=== PATIENT | male | born 1975 | race Caucasian/White ===

== ENCOUNTER 2016-06-09 21:07 | Inpatient (IN) ==
[2016-06-09] MEDS ORDERED: Ipratropium/Albuterol Neb 3 ML IH ONE (21:13)
--- NOTE | 2016-06-09 21:23 | Emergency Department Note ---
START Narrative - START START: I examined this patient and my medical decision-making was reviewed with the RESIDENTIAL YOUTH COUNSELOR/PA/Advanced Practice Nurse/Resident Physician. I agree with the documented findings, disposition and treatment plan as described except to the extent set forth below. ED attending note: Patient seen with emergency medicine resident Dr. Hou. Please see a copy of his note for details of the H&P, evaluation, management and disposition of this patient. We independently had [id number] contact with the patient Briefly: 41-year-old male with history of drug abuse last used 2015 transferred from the [facility]. Patient having cough for several weeks of mild shortness of breath and tachycardic rhonchi bilaterally with wheezes. With a DuoNeb labs and x-rays. EKG shows a tachycardia with may be an atrial dysrhythmia. Disposition pending. DuoNeb's pending.
--- NOTE | 2016-06-09 21:24 | Emergency Department Note ---
Disposition Clinical Impression: Bronchitis, Acute psychosis Disposition: Still a Patient Condition: Undetermined [facility] Care Provider[facility] - Forms: ED Satisfaction Letter Time of Disposition: 06:46 General Adult HPI - General Chief complaint: ED Upper Respiratory Infection Stated complaint: Cough Time Seen by Provider: 06/09/16 21:13 Source: patient Mode of arrival: EMS Limitations: no limitations Nursing Notes Reviewed: Yes Vital Signs Reviewed: Yes - History of Present Illness HPI Narrative: 41-year-old male history of IV drug abuse arrives to [facility] emergency department complaining of progressively worsening cough that started as a nonproductive cough roughly 3 weeks ago that is progressively worsened. The patient is now experiencing sputum production as well as difficulty breathing. The patient states that he has felt heart palpitations where his near syncopal episodes as well. The patient states that he had a history of endocarditis back in 2014 2015. The patient denies abdominal pain, current nausea, the lateral leg swelling, recent surgeries, focalized weakness. The patient denies any current IV drug abuse, alcohol, tobacco. Onset (ago): week(s) (3 weeks worsening over last 4 days) Location: chest Radiation: non-radiation Pain Severity: moderate Pain Scale: 8 Quality: dull Consistency: constant Improves with: nothing Worsens with: nothing Associated symptoms: Reports: cough, fever/chills, shortness of breath, syncope (Near syncope) Treatments Prior to Arrival: none - Related Data Allergies Allergy/AdvReac Type Severity Reaction Status Date / Time No Known Allergies Allergy Verified 06/09/16 21:14 All systems ED: reviewed and negative except as stated. Constitutional: Reports: fever, chills, weakness Eyes: Denies: eye pain, eye discharge, vision change ENT ED: Denies: ear pain, throat pain, dental pain, hearing loss, epistaxis, congestion, dysphagia Cardiovascular: Reports: chest pain, dyspnea on exertion, syncope (Near syncope) . Denies: palpitations, edema Respiratory: Reports: cough, dyspnea, wheezes, sputum production. Denies: hemoptysis, stridor Gastrointestinal: Reports: nausea (Intermittent). Denies: abdominal pain, vomiting, diarrhea, constipation, hematemesis, melena, hematochezia Genitourinary: Denies: urgency, dysuria, frequency, hematuria Musculoskeletal: Reports: myalgia. Denies: back pain, neck pain, joint swelling , arthralgia Integumentary: Denies: rash, abrasion, lesions Neurological: Denies: headache, weakness, numbness, paresthesias, confusion, abnormal gait, vertigo Psychiatric: Reports: anxiety, depression, other (Paranoia). Denies: suicidal thoughts, homicidal thoughts Past Medical History - Past Medical History Attestation: Yes The following information was validated with the patient. Source: patient Medical history: Reports: hypertension, other (Endocarditis) Surgical history: Reports: non-contributory Psychiatric history: Reports: depression, PTSD - Social History Smoking Status: Former smoker Smokeless Tobacco Status: Yes Alcohol use: Reports: none Drug use: Reports: none, other (Previous IVDU) Physical Exam - General Limitations: no limitations General appearance: alert, anxious - Head Head exam: atraumatic, normocephalic, normal inspection - Eye Eye exam: Present: normal appearance, PERRL, EOMI - ENT ENT exam: normal exam, normal oropharynx, mucous membranes moist - Neck Neck exam: Present: normal inspection, full ROM, trachea midline - Chest Chest inspection: Present: normal inspection, symmetric chest wall rise - Respiratory Respiratory exam: Present: wheezes, other (Bilateral rhonchi) - Cardiovascular Cardiovascular exam: Present: regular rate, normal rhythm, normal heart sounds - Abdominal Exam Abdominal exam: Present: soft, Non-Tender. Absent: tenderness, distention, guarding, rebound, rigidity - Extremities Exam Extremities exam: Present: normal inspection, full ROM. Absent: tenderness, pedal edema - Back Exam Back exam: Present: normal inspection, full ROM. Absent: tenderness - Neurological Exam Neurological exam: Present: alert, oriented X3 - Psychiatric Psychiatric exam: Present: normal affect, normal mood Course Vital Signs Temperature 98.4 F 06/09/16 21:10 Pulse Rate 104 06/09/16 21:10 Respiratory Rate 20 06/09/16 21:10 Blood Pressure 147/120 06/09/16 21:10 O2 Sat by Pulse Oximetry 93 06/09/16 21:10 Temperature 98.5 F 06/10/16 06:01 Pulse Rate 100 06/10/16 06:01 Respiratory Rate 18 06/10/16 06:01 Blood Pressure 168/112 06/10/16 06:01 O2 Sat by Pulse Oximetry 94 06/10/16 06:01 Oxygen Delivery Oxygen Delivery Room Air Medical Decision Making - MDM Narrative Medical decision making narrative: Patient appears to be symptomatic pneumonia. We were going to treat the patient we will discharge patient home, but upon further questioning the patient continued to experiencing worsening delusions and paranoia. The patient states he does not have the ability to go home because he said the government is at his apartment. The patient is also having auditory and visual hallucinations. We will consult one A and have the patient seen. Currently awaiting placement at the [facility]. - Medical Records Medical records reviewed: Yes I reviewed the patient's medical records. - Lab Data Lab results reviewed: Yes I reviewed the patient's lab results. Result diagrams: 06/09/16 21:20 06/09/16 22:18 Lab Results 06/09/16 06/09/16 06/09/16 Range/Units 21:20 21:20 21:20 WBC 6.2 (4.3-11.1) K/mcL RBC 5.42 (4.19-5.50) M/mcL Hgb 15.6 (12.9-16.9) g/dL Hct 46.6 (37.5-50.1) % MCV 86.0 (83.0-100.0) fL MCH 28.8 (28.0-33.3) pg MCHC 33.5 (31.6-35.5) g/dL RDW 13.7 (11.5-14.5) % Plt Count 323 (140-400) K/mcL MPV 9.6 (9.4-12.4) fL Immature Gran % 1.6 (0-4) % Seg Neutrophils % 56.7 % Lymphocytes % 20.0 % Monocytes % 20.8 % Eosinophils % 0.3 % Basophils % 0.6 % Neutrophils # 3.5 (1.6-8.9) K/mcL Lymphocytes # 1.2 (0.6-4.6) K/mcL Monocytes # 1.3 (0.0-1.3) K/mcL Eosinophils # 0.0 (0.0-0.6) K/mcL Basophils # 0.0 (0.0-0.2) K/mcL Platelet Estimate Normal (Normal) PT 11.3 (9.4-12.1) Seconds INR 1.0 APTT 27.6 (26.0-36.0) Seconds Sodium (136-145) mEq/L Potassium (3.5-4.5) mEq/L Chloride (98-109) mEq/L Carbon Dioxide (19-29) mEq/L BUN (8-26) mg/dL Creatinine (0.72-1.25) mg/dL Est GFR ( Amer) (> 60) Est GFR (Non-Af Amer) (> 60) BUN/Creatinine Ratio (6-26) Glucose (70-99) mg/dL Calculated Osmolality (280-300) Lactic Acid 1.5 (0.5-2.2) mmol/L Calcium (8.6-10.8) mg/dL Phosphorus (2.3-4.7) mg/dL Magnesium (1.6-2.6) mg/dL Total Bilirubin (0.2-1.2) mg/dL Direct Bilirubin (0.0-0.5) mg/dL Indirect Bilirubin (0.0-1.2) mg/dL AST (5-34) Units/L ALT (0-55) Units/L Alkaline Phosphatase (38-126) Units/L Troponin I (0-0.03) ng/mL Serum Total Protein (6.0-8.3) g/dL Albumin (3.5-5.0) g/dL Globulin (2.4-3.5) g/dL Albumin/Globulin Ratio (1.1-2.2) Urine Color (Yellow) Urine Clarity (Clear) Urine pH (5.0-8.0) pH Units Ur Specific [place] (1.010-1.025) Urine Protein (Neg-Trace) mg/dL Urine Glucose (UA) (Normal) mg/dL Urine Ketones (Negative) mg/dL Urine Blood (Negative) Urine Nitrite (Negative) Urine Bilirubin (Negative) Urine Urobilinogen (Normal) mg/dL Ur Leukocyte Esterase (Negative) Ur Culture Indicated? (NO) Urine Opiates Screen (Adglcu=787) ng/mL Ur Barbiturates Screen (Tcyqzg=298) ng/mL Ur Phencyclidine Scrn (Cutoff=25) ng/mL Ur Amphetamines Screen (Hzjalr=5688) ng/mL U Benzodiazepines Scrn (Kefogd=741) ng/mL Urine Cocaine Screen (Cutoff= 300) ng/mL U Marijuana (THC) Screen (Cutoff = 50) ng/mL Ethyl Alcohol (0-10) mg/dL 06/09/16 06/09/16 06/09/16 Range/Units 22:18 22:18 22:18 WBC (4.3-11.1) K/mcL RBC (4.19-5.50) M/mcL Hgb (12.9-16.9) g/dL Hct (37.5-50.1) % MCV (83.0-100.0) fL MCH (28.0-33.3) pg MCHC (31.6-35.5) g/dL RDW (11.5-14.5) % Plt Count (140-400) K/mcL MPV (9.4-12.4) fL Immature Gran % (0-4) % Seg Neutrophils % % Lymphocytes % % Monocytes % % Eosinophils % % Basophils % % Neutrophils # (1.6-8.9) K/mcL Lymphocytes # (0.6-4.6) K/mcL Monocytes # (0.0-1.3) K/mcL Eosinophils # (0.0-0.6) K/mcL Basophils # (0.0-0.2) K/mcL Platelet Estimate (Normal) PT (9.4-12.1) Seconds INR APTT (26.0-36.0) Seconds Sodium 135 L (136-145) mEq/L Potassium 3.8 (3.5-4.5) mEq/L Chloride 96 L (98-109) mEq/L Carbon Dioxide 28 (19-29) mEq/L BUN 18 (8-26) mg/dL Creatinine 1.16 (0.72-1.25) mg/dL Est GFR ( Amer) > 60 (> 60) Est GFR (Non-Af Amer) > 60 (> 60) BUN/Creatinine Ratio 16 (6-26) Glucose 168 H (70-99) mg/dL Calculated Osmolality 286 (280-300) Lactic Acid (0.5-2.2) mmol/L Calcium 9.4 (8.6-10.8) mg/dL Phosphorus 2.2 L (2.3-4.7) mg/dL Magnesium 2.5 (1.6-2.6) mg/dL Total Bilirubin 0.5 (0.2-1.2) mg/dL Direct Bilirubin 0.2 (0.0-0.5) mg/dL Indirect Bilirubin 0.3 (0.0-1.2) mg/dL AST 60 H (5-34) Units/L ALT 41 (0-55) Units/L Alkaline Phosphatase 142 H (38-126) Units/L Troponin I 0.00 (0-0.03) ng/mL Serum Total Protein 8.9 H (6.0-8.3) g/dL Albumin 4.2 (3.5-5.0) g/dL Globulin 4.7 H (2.4-3.5) g/dL Albumin/Globulin Ratio 0.9 L (1.1-2.2) Urine Color (Yellow) Urine Clarity (Clear) Urine pH (5.0-8.0) pH Units Ur Specific [place] (1.010-1.025) Urine Protein (Neg-Trace) mg/dL Urine Glucose (UA) (Normal) mg/dL Urine Ketones (Negative) mg/dL Urine Blood (Negative) Urine Nitrite (Negative) Urine Bilirubin (Negative) Urine Urobilinogen (Normal) mg/dL Ur Leukocyte Esterase (Negative) Ur Culture Indicated? (NO) Urine Opiates Screen (Yoneik=274) ng/mL Ur Barbiturates Screen (Ljxdmi=923) ng/mL Ur Phencyclidine Scrn (Cutoff=25) ng/mL Ur Amphetamines Screen (Goaqct=6613) ng/mL U Benzodiazepines Scrn (Dzaavl=961) ng/mL Urine Cocaine Screen (Cutoff= 300) ng/mL U Marijuana (THC) Screen (Cutoff = 50) ng/mL Ethyl Alcohol < 10 (0-10) mg/dL 06/10/16 06/10/16 Range/Units 01:00 01:00 WBC (4.3-11.1) K/mcL RBC (4.19-5.50) M/mcL Hgb (12.9-16.9) g/dL Hct (37.5-50.1) % MCV (83.0-100.0) fL MCH (28.0-33.3) pg MCHC (31.6-35.5) g/dL RDW (11.5-14.5) % Plt Count (140-400) K/mcL MPV (9.4-12.4) fL Immature Gran % (0-4) % Seg Neutrophils % % Lymphocytes % % Monocytes % % Eosinophils % % Basophils % % Neutrophils # (1.6-8.9) K/mcL Lymphocytes # (0.6-4.6) K/mcL Monocytes # (0.0-1.3) K/mcL Eosinophils # (0.0-0.6) K/mcL Basophils # (0.0-0.2) K/mcL Platelet Estimate (Normal) PT (9.4-12.1) Seconds INR APTT (26.0-36.0) Seconds Sodium (136-145) mEq/L Potassium (3.5-4.5) mEq/L Chloride (98-109) mEq/L Carbon Dioxide (19-29) mEq/L BUN (8-26) mg/dL Creatinine (0.72-1.25) mg/dL Est GFR ( Amer) (> 60) Est GFR (Non-Af Amer) (> 60) BUN/Creatinine Ratio (6-26) Glucose (70-99) mg/dL Calculated Osmolality (280-300) Lactic Acid (0.5-2.2) mmol/L Calcium (8.6-10.8) mg/dL Phosphorus (2.3-4.7) mg/dL Magnesium (1.6-2.6) mg/dL Total Bilirubin (0.2-1.2) mg/dL Direct Bilirubin (0.0-0.5) mg/dL Indirect Bilirubin (0.0-1.2) mg/dL AST (5-34) Units/L ALT (0-55) Units/L Alkaline Phosphatase (38-126) Units/L Troponin I (0-0.03) ng/mL Serum Total Protein (6.0-8.3) g/dL Albumin (3.5-5.0) g/dL Globulin (2.4-3.5) g/dL Albumin/Globulin Ratio (1.1-2.2) Urine Color Yellow (Yellow) Urine Clarity Clear (Clear) Urine pH 6.5 (5.0-8.0) pH Units Ur Specific [place] 1.023 (1.010-1.025) Urine Protein Negative (Neg-Trace) mg/dL Urine Glucose (UA) Normal (Normal) mg/dL Urine Ketones Negative (Negative) mg/dL Urine Blood Negative (Negative) Urine Nitrite Negative (Negative) Urine Bilirubin Negative (Negative) Urine Urobilinogen Normal (Normal) mg/dL Ur Leukocyte Esterase Negative (Negative) Ur Culture Indicated? NO (NO) Urine Opiates Screen Negative (Bjxfmz=509) ng/mL Ur Barbiturates Screen Negative (Ccmzja=339) ng/mL Ur Phencyclidine Scrn Negative (Cutoff=25) ng/mL Ur Amphetamines Screen Negative (Nbwrwa=3989) ng/mL U Benzodiazepines Scrn Positive H (Xmglxu=793) ng/mL Urine Cocaine Screen Negative (Cutoff= 300) ng/mL U Marijuana (THC) Screen Negative (Cutoff = 50) ng/mL Ethyl Alcohol (0-10) mg/dL - Radiology Data Radiology results reviewed: Yes I reviewed the patient's radiology results. - EKG Data EKG #1 EKG attestation: Yes I reviewed and interpreted this EKG. EKG results narrative: Heart rate 10 6 bpm. QTC 396 ms. Normal axis. Sinus tachycardia. No ST elevation or ST depression noted. No previous EKG on record.
[2016-06-09 21:39] LABS: Basophils % 0.6 %; Eosinophils % 0.3 %; Hematocrit 46.6 % (37.5-50.1); Hemoglobin 15.6 g/dL (12.9-16.9); Immature Granulocytes % 1.6 % (0-4); Lymphocytes # 1.2 K/mcL (0.6-4.6); Mean Corpuscular HGB Conc 33.5 g/dL (31.6-35.5); Mean Corpuscular Hemoglobin 28.8 pg (28.0-33.3); Mean Platelet Volume 9.6 fL (9.4-12.4); Monocytes # 1.3 K/mcL (0.0-1.3); Monocytes % 20.8 %; Neutrophils # 3.5 K/mcL (1.6-8.9); Platelet Count 323 K/mcL (140-400); Red Blood Count 5.42 M/mcL (4.19-5.50); Red Cell Distribution Width 13.7 % (11.5-14.5); Segmented Neutrophils % 56.7 %
[2016-06-09 21:48] LABS: Prothrombin Time 11.3 Seconds (9.4-12.1)
[2016-06-09 21:51] LABS: Activated Partial Thrombo Time 27.6 Seconds (26.0-36.0)
[2016-06-09] MEDS ORDERED: *HR* LORazepam 2 MG/ML VIAL IVP ONE (21:56)
[2016-06-09] MEDS: 0.9 % Sodium Chloride 1,000 ML IVC SCH (22:14)
[2016-06-09 22:21] LABS: Platelet Estimate Normal (Normal)
[2016-06-09 22:44] LABS: Alanine Aminotransferase 41 Units/L (0-55); Albumin 4.2 g/dL (3.5-5.0); Albumin/Globulin Ratio 0.9 (1.1-2.2); Alkaline Phosphatase 142 Units/L (38-126); Aspartate Amino Transferase 60 Units/L (5-34); BUN/Creatinine Ratio 16 (6-26); Bilirubin,Direct 0.2 mg/dL (0.0-0.5); Bilirubin,Indirect 0.3 mg/dL (0.0-1.2); Bilirubin,Total 0.5 mg/dL (0.2-1.2); Blood Urea Nitrogen 18 mg/dL (8-26); Calcium 9.4 mg/dL (8.6-10.8); Carbon Dioxide 28 mEq/L (19-29); Chloride 96 mEq/L (98-109); Globulin 4.7 g/dL (2.4-3.5); Glucose 168 mg/dL (70-99); Magnesium 2.5 mg/dL (1.6-2.6); Osmolality,Calculated 286 (280-300); Phosphorous 2.2 mg/dL (2.3-4.7); Potassium 3.8 mEq/L (3.5-4.5); Sodium 135 mEq/L (136-145); Total Protein 8.9 g/dL (6.0-8.3); eGFR For African Americans > 60 (> 60); eGFR For Non-African Americans > 60 (> 60)
[2016-06-10] MEDS ORDERED: Haloperidol Lactate 5 MG/ML VIAL IVP ONE ×2 (00:25→12:27)
[2016-06-10] MEDS ORDERED: 0.9 % Sodium Chloride 1,000 ML ONE (00:29)
[2016-06-10] MEDS: 0.9 % Sodium Chloride 1,000 ML IVC SCH (00:31)
[2016-06-10 01:19] LABS: Bilirubin,Urine Negative (Negative); Blood,Urine Negative (Negative); Clarity,Urine Clear (Clear); Color,Urine Yellow (Yellow); Glucose,Urine (UA) Normal (Normal); Ketones,Urine Negative (Negative); Leukocyte Esterase,Urine Negative (Negative); Nitrite,Urine Negative (Negative); PH,Urine 6.5 pH Units (5.0-8.0); Protein,Urine Negative (Neg-Trace); Specific Gravity,Urine 1.023 (1.010-1.025); Urobilinogen,Urine Normal (Normal)
[2016-06-10 01:25] LABS: Amphetamine Screen,Urine Negative ng/mL (Cutoff=1000); Barbiturate Screen,Urine Negative ng/mL (Cutoff=200); Benzodiazepines Screen,Urine Positive ng/mL (Cutoff=200); Cannabinoid Screen,Urine Negative ng/mL (Cutoff = 50); Cocaine Screen,Urine Negative ng/mL (Cutoff= 300); Opiate Screen,Urine Negative ng/mL (Cutoff=300); Phencyclidine Screen,Urine Negative ng/mL (Cutoff=25)
[2016-06-10] MEDS ORDERED: *HR* Enoxaparin 100 MG/ML SYRINGE SQ STA (02:06)
[2016-06-10] MEDS ORDERED: cloNIDine HCl 0.1 MG TABLET PO ONE ×2 (02:49→09:26)
[2016-06-10] MEDS ORDERED: *HR* Labetalol 20 MG/4 ML SYRINGE IVP STA (03:22)
[2016-06-10] MEDS ORDERED: *HR* Labetalol 20 MG/4 ML SYRINGE IVP ONE ×3 (03:52→09:23)
[2016-06-10] MEDS ORDERED: *HR* Metoprolol 5 MG/5 ML VIAL IVP ONE (04:30)
--- NOTE | 2016-06-10 07:09 | Emergency Department Note ---
Disposition Clinical Impression: Bronchitis, Acute psychosis Disposition: Admitted As Inpatient Condition: Good Time of Disposition: 14:20 General Adult HPI - General Chief complaint: ED Upper Respiratory Infection Stated complaint: Cough/psych Time Seen by Provider: 06/09/16 21:13 Source: patient Mode of arrival: EMS Limitations: no limitations - History of Present Illness Location: chest Pain Scale: 8 Quality: dull Improves with: nothing Worsens with: nothing Associated symptoms: Reports: cough, fever/chills, shortness of breath, syncope (Near syncope) Treatments Prior to Arrival: none - Related Data Home Medications Medication Instructions Recorded Confirmed Acetaminophen [Tylenol] 650 mg PO TID PRN 06/10/16 06/10/16 Baclofen 20 mg PO TID 06/10/16 06/10/16 Carvedilol 12.5 mg PO BID 06/10/16 06/10/16 Cetirizine HCl [Zyrtec] 10 mg PO DAILY 06/10/16 06/10/16 Cholecalciferol (D-3) [Vitamin D] 2,000 unit PO DAILY 06/10/16 06/10/16 CloNIDine HCl [Clonidine HCl] 0.2 mg PO Q8H PRN 06/10/16 06/10/16 DiphenhydraMINE [Benadryl] 25 mg PO HS 06/10/16 06/10/16 Gabapentin [Neurontin] 1,200 mg PO HS 06/10/16 06/10/16 Gabapentin [Neurontin] 500 mg PO BID 06/10/16 06/10/16 HydrOXYzine Pamoate [Vistaril] 50 mg PO TID PRN 06/10/16 06/10/16 Lamotrigine [Lamictal] 100 mg PO AD 06/10/16 06/10/16 Levothyroxine [Synthroid] 25 mcg PO 0630 06/10/16 06/10/16 Lipase/Protease/Amylase [Creon Dr 1 each PO QID 06/10/16 06/10/16 6,000 Units Capsule] Lisinopril-HCTZ 20-12.5 [Prinzide 2 each PO DAILY 06/10/16 06/10/16 20-12.5] Melatonin [Melatin] 6 mg PO HS 06/10/16 06/10/16 Meloxicam [Mobic] 15 mg PO DAILY 06/10/16 06/10/16 Naltrexone Microspheres [Vivitrol] 380 mg IM Q28D 06/10/16 06/10/16 Omeprazole [PriLOSEC] 20 mg PO BIDAC 06/10/16 06/10/16 Ondansetron HCl [Zofran] 4 mg PO TID PRN 06/10/16 06/10/16 Promethazine [Phenergan] 25 mg PO BID 06/10/16 06/10/16 Pseudoephedrine [Sudafed] 60 mg PO Q6H PRN 06/10/16 06/10/16 Quetiapine Fumarate [SEROquel] 100 mg PO 1200 06/10/16 06/10/16 Quetiapine Fumarate [Seroquel] 600 mg PO HS 06/10/16 06/10/16 Sildenafil Citrate [Viagra] 50 mg PO AD PRN 06/10/16 06/10/16 Terazosin HCl 4 mg PO HS 06/10/16 06/10/16 Trazodone HCl 150 mg PO HS PRN 06/10/16 06/10/16 Allergies Allergy/AdvReac Type Severity Reaction Status Date / Time mupirocin [From Bactroban] AdvReac See Verified 06/10/16 15:19 Comments Constitutional: Reports: fever, chills, weakness Eyes: Denies: eye pain, eye discharge, vision change ENT ED: Denies: ear pain, throat pain, dental pain, hearing loss, epistaxis, congestion, dysphagia Cardiovascular: Reports: chest pain, dyspnea on exertion, syncope (Near syncope) . Denies: palpitations, edema Respiratory: Reports: cough, dyspnea, wheezes, sputum production. Denies: hemoptysis, stridor Gastrointestinal: Reports: nausea (Intermittent). Denies: abdominal pain, vomiting, diarrhea, constipation, hematemesis, melena, hematochezia Genitourinary: Denies: urgency, dysuria, frequency, hematuria Musculoskeletal: Reports: myalgia. Denies: back pain, neck pain, joint swelling , arthralgia Integumentary: Denies: rash, abrasion, lesions Neurological: Denies: headache, weakness, numbness, paresthesias, confusion, abnormal gait, vertigo Psychiatric: Reports: anxiety, depression, other (Paranoia). Denies: suicidal thoughts, homicidal thoughts Past Medical History - Past Medical History Medical history: Reports: hypertension, other (Endocarditis) Surgical history: Reports: non-contributory Psychiatric history: Reports: depression, PTSD - Social History Smoking Status: Former smoker Smokeless Tobacco Status: Yes Alcohol use: Reports: none Drug use: Reports: none, other (Previous IVDU) Physical Exam - General Limitations: no limitations General appearance: alert, anxious Course Course Narrative: Patient states signed out at shift change by Dr. Cortes and Dr. Hou. Patient is being for transfer to [facility]. Medical admission for psychiatric admission to be completed. Patient stable at this time no other intervention needed. We will reevaluate once he wakes up. We will let him rest at this time. Vital signs and stable throughout the night and he is in no acute concern for harming staff herself at this time. We will continue to monitor as treatment course is completed - Reevaluation(s) Reevaluation #1: [facility] is been contacted multiple times throughout the course. This morning. We have been observing and treating this patient for approximate 6 hours at this time. Multiple attempts of been made to transfer the patient over [facility] and has been met resistance. Laboratory workup imaging and paperwork involvement sent to them at this time. Direct contact was made with the psychiatrist that would be accepting them. They are requesting at this point repeat EKG and blood pressure to be evaluated. They are concerned there is a medical issue at this time. Patient's blood pressure has been elevated but is known of hypertension. Is responded to home medications are in issue. Patient is still acutely manic. Otherwise she has been no distress to us. The rest of his labs and imaging were reviewed and are stable. Disposition pending repeat evaluation by the [facility] Time: 12:58 Reevaluation #2: [facility] was contacted again. They feel that the unable to take care of this patient here because they would require a cardiology consultation to evaluate his high heart rate and hypertension. Patient has not had any acute issues here. When he is resting his heart rate is below 100 only goes up when he is getting agitated. Most of his presentation appears to be secondary to his manic episodes. They understand this but still do not feel comfortable taking her. We will admit for medical clearance and treatment here at our facility and then psychiatric placement. Patient is stable hospital was paged at this time Time: 14:09 Reevaluation #3: Patient discussed with the hospice nurse practitioner Kayleigh for admission process and medical clearance. The patient's presentation symptoms medical history. Should other recommendations this time. Patient stable pressures normalized with his home meds with his heart rate does go up a time; talk to him. She will be admitted and then transferred to outside facility. Time: 14:19 Vital Signs Temperature 98.4 F 06/09/16 21:10 Pulse Rate 104 06/09/16 21:10 Respiratory Rate 20 06/09/16 21:10 Blood Pressure 147/120 06/09/16 21:10 O2 Sat by Pulse Oximetry 93 06/09/16 21:10 Temperature 98.7 F 06/10/16 16:19 Pulse Rate 115 06/10/16 16:19 Respiratory Rate 18 06/10/16 16:19 Blood Pressure 138/97 06/10/16 16:19 O2 Sat by Pulse Oximetry 94 06/10/16 16:19 Oxygen Delivery Oxygen Delivery Room Air Medical Decision Making - MDM Narrative Medical decision making narrative: Manic episode, schizophrenia - Medical Records Medical records reviewed: Yes I reviewed the patient's medical records. - Lab Data Lab results reviewed: Yes I reviewed the patient's lab results. Result diagrams: 06/09/16 21:20 06/09/16 22:18 Lab Results 06/09/16 06/09/16 06/09/16 Range/Units 21:20 21:20 21:20 WBC 6.2 (4.3-11.1) K/mcL RBC 5.42 (4.19-5.50) M/mcL Hgb 15.6 (12.9-16.9) g/dL Hct 46.6 (37.5-50.1) % MCV 86.0 (83.0-100.0) fL MCH 28.8 (28.0-33.3) pg MCHC 33.5 (31.6-35.5) g/dL RDW 13.7 (11.5-14.5) % Plt Count 323 (140-400) K/mcL MPV 9.6 (9.4-12.4) fL Immature Gran % 1.6 (0-4) % Seg Neutrophils % 56.7 % Lymphocytes % 20.0 % Monocytes % 20.8 % Eosinophils % 0.3 % Basophils % 0.6 % Neutrophils # 3.5 (1.6-8.9) K/mcL Lymphocytes # 1.2 (0.6-4.6) K/mcL Monocytes # 1.3 (0.0-1.3) K/mcL Eosinophils # 0.0 (0.0-0.6) K/mcL Basophils # 0.0 (0.0-0.2) K/mcL Platelet Estimate Normal (Normal) PT 11.3 (9.4-12.1) Seconds INR 1.0 APTT 27.6 (26.0-36.0) Seconds Sodium (136-145) mEq/L Potassium (3.5-4.5) mEq/L Chloride (98-109) mEq/L Carbon Dioxide (19-29) mEq/L BUN (8-26) mg/dL Creatinine (0.72-1.25) mg/dL Est GFR ( Amer) (> 60) Est GFR (Non-Af Amer) (> 60) BUN/Creatinine Ratio (6-26) Glucose (70-99) mg/dL Calculated Osmolality (280-300) Lactic Acid 1.5 (0.5-2.2) mmol/L Calcium (8.6-10.8) mg/dL Phosphorus (2.3-4.7) mg/dL Magnesium (1.6-2.6) mg/dL Total Bilirubin (0.2-1.2) mg/dL Direct Bilirubin (0.0-0.5) mg/dL Indirect Bilirubin (0.0-1.2) mg/dL AST (5-34) Units/L ALT (0-55) Units/L Alkaline Phosphatase (38-126) Units/L Troponin I (0-0.03) ng/mL Serum Total Protein (6.0-8.3) g/dL Albumin (3.5-5.0) g/dL Globulin (2.4-3.5) g/dL Albumin/Globulin Ratio (1.1-2.2) Urine Color (Yellow) Urine Clarity (Clear) Urine pH (5.0-8.0) pH Units Ur Specific Hudson (1.010-1.025) Urine Protein (Neg-Trace) mg/dL Urine Glucose (UA) (Normal) mg/dL Urine Ketones (Negative) mg/dL Urine Blood (Negative) Urine Nitrite (Negative) Urine Bilirubin (Negative) Urine Urobilinogen (Normal) mg/dL Ur Leukocyte Esterase (Negative) Ur Culture Indicated? (NO) Urine Opiates Screen (Qfvtep=057) ng/mL Ur Barbiturates Screen (Bccpdg=599) ng/mL Ur Phencyclidine Scrn (Cutoff=25) ng/mL Ur Amphetamines Screen (Hyszuo=9940) ng/mL U Benzodiazepines Scrn (Wsktgf=938) ng/mL Urine Cocaine Screen (Cutoff= 300) ng/mL U Marijuana (THC) Screen (Cutoff = 50) ng/mL Ethyl Alcohol (0-10) mg/dL 06/09/16 06/09/16 06/09/16 Range/Units 22:18 22:18 22:18 WBC (4.3-11.1) K/mcL RBC (4.19-5.50) M/mcL Hgb (12.9-16.9) g/dL Hct (37.5-50.1) % MCV (83.0-100.0) fL MCH (28.0-33.3) pg MCHC (31.6-35.5) g/dL RDW (11.5-14.5) % Plt Count (140-400) K/mcL MPV (9.4-12.4) fL Immature Gran % (0-4) % Seg Neutrophils % % Lymphocytes % % Monocytes % % Eosinophils % % Basophils % % Neutrophils # (1.6-8.9) K/mcL Lymphocytes # (0.6-4.6) K/mcL Monocytes # (0.0-1.3) K/mcL Eosinophils # (0.0-0.6) K/mcL Basophils # (0.0-0.2) K/mcL Platelet Estimate (Normal) PT (9.4-12.1) Seconds INR APTT (26.0-36.0) Seconds Sodium 135 L (136-145) mEq/L Potassium 3.8 (3.5-4.5) mEq/L Chloride 96 L (98-109) mEq/L Carbon Dioxide 28 (19-29) mEq/L BUN 18 (8-26) mg/dL Creatinine 1.16 (0.72-1.25) mg/dL Est GFR ( Amer) > 60 (> 60) Est GFR (Non-Af Amer) > 60 (> 60) BUN/Creatinine Ratio 16 (6-26) Glucose 168 H (70-99) mg/dL Calculated Osmolality 286 (280-300) Lactic Acid (0.5-2.2) mmol/L Calcium 9.4 (8.6-10.8) mg/dL Phosphorus 2.2 L (2.3-4.7) mg/dL Magnesium 2.5 (1.6-2.6) mg/dL Total Bilirubin 0.5 (0.2-1.2) mg/dL Direct Bilirubin 0.2 (0.0-0.5) mg/dL Indirect Bilirubin 0.3 (0.0-1.2) mg/dL AST 60 H (5-34) Units/L ALT 41 (0-55) Units/L Alkaline Phosphatase 142 H (38-126) Units/L Troponin I 0.00 (0-0.03) ng/mL Serum Total Protein 8.9 H (6.0-8.3) g/dL Albumin 4.2 (3.5-5.0) g/dL Globulin 4.7 H (2.4-3.5) g/dL Albumin/Globulin Ratio 0.9 L (1.1-2.2) Urine Color (Yellow) Urine Clarity (Clear) Urine pH (5.0-8.0) pH Units Ur Specific Hudson (1.010-1.025) Urine Protein (Neg-Trace) mg/dL Urine Glucose (UA) (Normal) mg/dL Urine Ketones (Negative) mg/dL Urine Blood (Negative) Urine Nitrite (Negative) Urine Bilirubin (Negative) Urine Urobilinogen (Normal) mg/dL Ur Leukocyte Esterase (Negative) Ur Culture Indicated? (NO) Urine Opiates Screen (Pcfxmd=427) ng/mL Ur Barbiturates Screen (Wtgcgj=552) ng/mL Ur Phencyclidine Scrn (Cutoff=25) ng/mL Ur Amphetamines Screen (Hluuxr=9201) ng/mL U Benzodiazepines Scrn (Vgsspn=443) ng/mL Urine Cocaine Screen (Cutoff= 300) ng/mL U Marijuana (THC) Screen (Cutoff = 50) ng/mL Ethyl Alcohol < 10 (0-10) mg/dL 06/10/16 06/10/16 Range/Units 01:00 01:00 WBC (4.3-11.1) K/mcL RBC (4.19-5.50) M/mcL Hgb (12.9-16.9) g/dL Hct (37.5-50.1) % MCV (83.0-100.0) fL MCH (28.0-33.3) pg MCHC (31.6-35.5) g/dL RDW (11.5-14.5) % Plt Count (140-400) K/mcL MPV (9.4-12.4) fL Immature Gran % (0-4) % Seg Neutrophils % % Lymphocytes % % Monocytes % % Eosinophils % % Basophils % % Neutrophils # (1.6-8.9) K/mcL Lymphocytes # (0.6-4.6) K/mcL Monocytes # (0.0-1.3) K/mcL Eosinophils # (0.0-0.6) K/mcL Basophils # (0.0-0.2) K/mcL Platelet Estimate (Normal) PT (9.4-12.1) Seconds INR APTT (26.0-36.0) Seconds Sodium (136-145) mEq/L Potassium (3.5-4.5) mEq/L Chloride (98-109) mEq/L Carbon Dioxide (19-29) mEq/L BUN (8-26) mg/dL Creatinine (0.72-1.25) mg/dL Est GFR ( Amer) (> 60) Est GFR (Non-Af Amer) (> 60) BUN/Creatinine Ratio (6-26) Glucose (70-99) mg/dL Calculated Osmolality (280-300) Lactic Acid (0.5-2.2) mmol/L Calcium (8.6-10.8) mg/dL Phosphorus (2.3-4.7) mg/dL Magnesium (1.6-2.6) mg/dL Total Bilirubin (0.2-1.2) mg/dL Direct Bilirubin (0.0-0.5) mg/dL Indirect Bilirubin (0.0-1.2) mg/dL AST (5-34) Units/L ALT (0-55) Units/L Alkaline Phosphatase (38-126) Units/L Troponin I (0-0.03) ng/mL Serum Total Protein (6.0-8.3) g/dL Albumin (3.5-5.0) g/dL Globulin (2.4-3.5) g/dL Albumin/Globulin Ratio (1.1-2.2) Urine Color Yellow (Yellow) Urine Clarity Clear (Clear) Urine pH 6.5 (5.0-8.0) pH Units Ur Specific Hudson 1.023 (1.010-1.025) Urine Protein Negative (Neg-Trace) mg/dL Urine Glucose (UA) Normal (Normal) mg/dL Urine Ketones Negative (Negative) mg/dL Urine Blood Negative (Negative) Urine Nitrite Negative (Negative) Urine Bilirubin Negative (Negative) Urine Urobilinogen Normal (Normal) mg/dL Ur Leukocyte Esterase Negative (Negative) Ur Culture Indicated? NO (NO) Urine Opiates Screen Negative (Npclmn=040) ng/mL Ur Barbiturates Screen Negative (Gbzzqm=557) ng/mL Ur Phencyclidine Scrn Negative (Cutoff=25) ng/mL Ur Amphetamines Screen Negative (Jyekrk=3470) ng/mL U Benzodiazepines Scrn Positive H (Dgnktj=820) ng/mL Urine Cocaine Screen Negative (Cutoff= 300) ng/mL U Marijuana (THC) Screen Negative (Cutoff = 50) ng/mL Ethyl Alcohol (0-10) mg/dL Attestation Statement - Attestation Attestation: I, Alden Daniels, examined this patient and my medical decision-making was reviewed with the HEAT PLANT SPECIALIST/PA/Advanced Practice Nurse/Resident Physician. I agree with the documented findings, disposition and treatment plan as described except to the extent set forth below. 41-year-old male received in sign out from the night physician at the start of my shift pending transfer to [facility]. Pt was initially evaluated for a persistent cough. During the evaluation, the patient was found to have paranoid delusions , to be tachycardic, and hypertensive. Patient BP improved after administration of multiple antihypertensive medications in the emergency department. Patient has no further complaints at this time. The [facility] was contacted multiple times during my shift who then said that [facility] because of his heart [facility]. They stated that they were unable to medically admit him at the [facility] because there was no film cleaner available to consult regarding the tachycardia. Patient will be admitted to the hospitalists for further care and evaluation and observation regarding his tachycardia.
[2016-06-10] MEDS ORDERED: *HR* LORazepam 2 MG/ML VIAL IVP ONE ×2 (09:24→12:26)
[2016-06-10] MEDS ORDERED: *HR* LORazepam 1 MG TABLET PO ONE (12:56)
--- NOTE | 2016-06-10 16:12 | Internal Med History&Physical ---
<Kevon Palma - Last Filed: 06/10/16 17:01> Date of Encounter: 06/10/16 Time of Encounter: 16:07 Assessment and Plan (1) Bronchitis Current visit: Yes Status: Acute currently on room air. recently treated with augmentin. will treat with Azithromycin to cover for atypicals as he is still symptomatic. Bronchodilators PRN. (2) Acute psychosis Current visit: Yes Status: Acute patient exhibits signs of paranoia and delusions. Very difficult to interview. Consult Psychiatry. will order PRN haldol. Obtain verification of home med list from pharmacy. (3) Bipolar disease, chronic Current visit: Yes Status: Acute appreciate input from psych. continue home medications when verified. (4) Transaminitis Current visit: Yes Status: Acute mildly elevated. Possibly from medications or ETOH. continue to montitor. (5) Accelerated hypertension Current visit: Yes Status: Acute likely from agitation and missing clonidine dosage. Improved and currently at goal. resume home BP meds. (6) DVT prophylaxis Current visit: Yes Status: Acute EPCD Internal Medicine - H&P: HPI Chief complaint: cough Admitted From: Emergency Dept Plans for Post Hospital Care: Home History of present illness: Mr. Smith is a 41 year old male with past medical history of BiPolar disorder and PTSD. He came to [facility] ED complaining of a cough. However he became agitated and exhibited symptoms of Psychosis. ER did try and transfer him to the [facility] where he has received psychiatric care in the past. However he had some mild tachycardia and hypertension so he will be admitted to [facility]. Today the patient is a very poor historian. He selectively answers questions. He states that he came in for a cough and " pneumonia like symptoms". He also has possibly some delusions. He seems to have some paranoia about his roomates saying they had tapped his phone. He also stated that he met Keagan Smith here at the hospital. Past Med Surg Social Fam HX - Past Medical History Medical history: hypertension, other (Endocarditis) Psychiatric history: depression, PTSD - Past Surgical History Surgical History: non-contributory - Social History Smoking Status: Former smoker Smokeless Tobacco Status: Yes Alcohol use: none Drug use: none, other (Previous IVDU) Internal Medicine - H&P: Meds Acetaminophen [Tylenol] 650 mg PO TID PRN 06/10/16 [History] Baclofen 20 mg PO TID 06/10/16 [History] Carvedilol 12.5 mg PO BID 06/10/16 [History] Cetirizine HCl [Zyrtec] 10 mg PO DAILY 06/10/16 [History] Cholecalciferol (D-3) [Vitamin D] 2,000 unit PO DAILY 06/10/16 [History] CloNIDine HCl [Clonidine HCl] 0.2 mg PO Q8H PRN 06/10/16 [History] DiphenhydraMINE [Benadryl] 25 mg PO HS 06/10/16 [History] Gabapentin [Neurontin] 1,200 mg PO HS 06/10/16 [History] Gabapentin [Neurontin] 500 mg PO BID 06/10/16 [History] HydrOXYzine Pamoate [Vistaril] 50 mg PO TID PRN 06/10/16 [History] Lamotrigine [Lamictal] 100 mg PO AD 06/10/16 [History] Levothyroxine [Synthroid] 25 mcg PO 0630 06/10/16 [History] Lipase/Protease/Amylase [Creon Dr 6,000 Units Capsule] 1 each PO QID 06/10/16 [ History] Lisinopril-HCTZ 20-12.5 [Prinzide 20-12.5] 2 each PO DAILY 06/10/16 [History] Melatonin [Melatin] 6 mg PO HS 06/10/16 [History] Meloxicam [Mobic] 15 mg PO DAILY 06/10/16 [History] Naltrexone Microspheres [Vivitrol] 380 mg IM Q28D 06/10/16 [History] Omeprazole [PriLOSEC] 20 mg PO BIDAC 06/10/16 [History] Ondansetron HCl [Zofran] 4 mg PO TID PRN 06/10/16 [History] Promethazine [Phenergan] 25 mg PO BID 06/10/16 [History] Pseudoephedrine [Sudafed] 60 mg PO Q6H PRN 06/10/16 [History] Quetiapine Fumarate [SEROquel] 100 mg PO 1200 06/10/16 [History] Quetiapine Fumarate [Seroquel] 600 mg PO HS 06/10/16 [History] Sildenafil Citrate [Viagra] 50 mg PO AD PRN 06/10/16 [History] Terazosin HCl 4 mg PO HS 06/10/16 [History] Trazodone HCl 150 mg PO HS PRN 06/10/16 [History] Allergies mupirocin [From Bactroban] Adverse Reaction (Verified 06/10/16 15:19) See Comments per [facility] list All Systems PM: A 10-system review of systems was performed and is negative for pertinent findings except as documented above in the HPI. Review of systems: t Unable to obtain. Patient is not cooperative with interview. - Constitutional Vitals: Temp Pulse Resp BP Pulse Ox 0 F L 115 18 137/78 96 06/10/16 15:44 06/10/16 13:35 06/10/16 15:44 06/10/16 15:44 06/10/16 13:35 General appearance: Present: A&O X 1 - Head Head exam: Present: atraumatic, normocephalic - Eye Eye exam: Present: PERRL, conjuntiva pink, sclera anicteric Pupils: Present: PERRL - Neck Neck exam general surgery: Present: supple, trachea midline. Absent: lymphadenopathy - Respiratory Respiratory exam: Present: wheezes (mild expiratory bilateral). Absent: accessory muscle use, rales, rhonchi - Cardiovascular Cardiovascular exam: Present: +S1, +S2, tachycardia (mildly). Absent: diastolic murmur, gallop, rubs, systolic murmur - GI/Abdominal GI/Abdominal exam: Present: normal bowel sounds, soft, no peritoneal signs. Absent: distended, tenderness - Extremities Exam Extremities exam: Present: warm, radial pulses palpable and symetrical. Absent : calf tenderness, cyanotic, pedal edema - Psychiatric Psychiatric exam: Present: agitated, anxious, flat affect - Skin Skin exam: Present: dry, intact Internal Med - H&P Results - Labs CBC & Chem 7: 06/09/16 21:20 06/09/16 22:18 <Tyrone Bernard P - Last Filed: 06/10/16 19:05> Date of Encounter: 06/10/16 Internal Medicine - H&P: HPI History of present illness: Mr. Smith is a 41 year old male All Systems PM: A 10-system review of systems was performed and is negative for pertinent findings except as documented above in the HPI. - Constitutional Vitals: Temp Pulse Resp BP Pulse Ox 98.7 F 115 18 138/97 94 06/10/16 16:19 06/10/16 16:19 06/10/16 16:19 06/10/16 16:19 06/10/16 16:19 Internal Med - H&P Results - Labs CBC & Chem 7: 06/09/16 21:20 06/09/16 22:18 - Impressions ITS Impressions Head CT 06/10/16 16:17 IMPRESSION: No acute intracranial abnormality. D/ / Sugey Angel MD / Sugey Angel MD Interpreting Provider: Sugey Angel MD - Attending Attestation I examined this patient and my medical decision-making was reviewed with the FRUIT SORTER/PA/Advanced Practice Nurse/Resident Physician. I agree with the documented findings, disposition and treatment plan as described except to the extent set forth below.
[2016-06-10] MEDS ORDERED: Naloxone 0.4 MG/ML INJ IVP PRN (16:13)
[2016-06-10] MEDS ORDERED: Acetaminophen 325 MG TABLET PO PRN (16:13)
[2016-06-10] MEDS ORDERED: Ondansetron ODT 4 MG TAB.RAPDIS SL PRN (16:13)
[2016-06-10] MEDS ORDERED: Albuterol 2.5 MG/3 ML NEBULIZER IH PRN (16:16)
[2016-06-10] MEDS ORDERED: Azithromycin 250 MG TABLET PO ONE (16:22)
[2016-06-10] MEDS ORDERED: Haloperidol Lactate 5 MG/ML VIAL IM PRN (16:25)
[2016-06-10] MEDS ORDERED: cloNIDine HCl 0.1 MG TABLET PO PRN (16:57)
--- NOTE | 2016-06-10 18:30 | Electrocardiograph Report ---
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
--- NOTE | 2016-06-10 19:07 | Electrocardiograph Report ---
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
[2016-06-10] MEDS: Ipratropium/Albuterol Neb 3 ML IH PRN (20:43)
[2016-06-10] MEDS: Baclofen 10 MG TABLET PO SCH (21:05)
[2016-06-11] MEDS ORDERED: OLANZapine 10 MG VIAL IM ONE (01:30)
--- NOTE | 2016-06-11 01:31 | Event Note ---
Date of Encounter: 06/11/16 Time of Encounter: 01:31 On-call Hospitalist note: I have been paged to see the pt. Pt apparently packed his bags and wants to go to [facility]. He thinks that President [facility] is waiting to pick him up. He made a phone call to his family. Psychosis - given a dose of zyprexa 5 mg IM. Involuntary commitment done. Needs evaluation by the psychiatrist.
[2016-06-11] MEDS ORDERED: Water for inj. (sterile) 10 ML IV ONE (01:41)
[2016-06-11 05:35] LABS: Basophils % 0.3 %; Hematocrit 43.9 % (37.5-50.1); Hemoglobin 14.8 g/dL (12.9-16.9); Immature Granulocytes % 0.8 % (0-4); Lymphocytes # 1.5 K/mcL (0.6-4.6); Lymphocytes % 20.3 %; Mean Corpuscular HGB Conc 33.7 g/dL (31.6-35.5); Mean Corpuscular Hemoglobin 28.6 pg (28.0-33.3); Mean Corpuscular Volume 84.7 fL (83.0-100.0); Mean Platelet Volume 9.6 fL (9.4-12.4); Monocytes # 1.4 K/mcL (0.0-1.3); Monocytes % 19.2 %; Neutrophils # 4.4 K/mcL (1.6-8.9); Platelet Count 262 K/mcL (140-400); Red Blood Count 5.18 M/mcL (4.19-5.50); Red Cell Distribution Width 13.9 % (11.5-14.5); Segmented Neutrophils % 59.4 %
[2016-06-11] MEDS: Levothyroxine 25 MCG TABLET PO SCH (05:47)
[2016-06-11 06:12] LABS: BUN/Creatinine Ratio 22 (6-26); Blood Urea Nitrogen 21 mg/dL (8-26); Calcium 9.6 mg/dL (8.6-10.8); Carbon Dioxide 21 mEq/L (19-29); Chloride 98 mEq/L (98-109); Glucose 105 mg/dL (70-99); Osmolality,Calculated 279 (280-300); Potassium 3.6 mEq/L (3.5-4.5); Sodium 133 mEq/L (136-145); eGFR For African Americans > 60 (> 60); eGFR For Non-African Americans > 60 (> 60)
[2016-06-11 06:44] LABS: Platelet Estimate Normal (Normal)
[2016-06-11 06:45] LABS: Reactive Lymphocytes Present (Not Present)
[2016-06-11] MEDS: Baclofen 10 MG TABLET PO SCH ×3 (09:04→21:21)
[2016-06-11] MEDS: Lisinopril-HCTZ 20-12.5mg TABLET PO SCH (09:04)
[2016-06-11] MEDS: Azithromycin 250 MG TABLET PO SCH (09:04)
[2016-06-11] MEDS ORDERED: traZODone 50 MG TABLET PO PRN (11:35)
[2016-06-11] MEDS ORDERED: hydrOXYzine pamoate 25 MG CAPSULE PO PRN (11:35)
--- NOTE | 2016-06-11 14:17 | Discharge Summary ---
Date of Encounter: 06/11/16 Time of Encounter: 14:17 - Discharge Diagnosis (1) Bronchitis Priority: Primary Status: Acute (2) Acute psychosis Priority: Secondary Status: Acute (3) Bipolar disease, chronic Priority: Secondary Status: Acute (4) Transaminitis Priority: Secondary Status: Acute (5) DVT prophylaxis Priority: Secondary Status: Acute (6) Accelerated hypertension Priority: Secondary Status: Acute - Discharge Medications Prescriptions: Azithromycin [Zithromax] 250 mg PO DAILY #5 tablet Carvedilol [Coreg] 25 mg PO BID #60 tablet Home Medications: Acetaminophen [Tylenol] 650 mg PO TID PRN 06/10/16 [History] Baclofen 20 mg PO TID 06/10/16 [History] Cetirizine HCl [Zyrtec] 10 mg PO DAILY 06/10/16 [History] Cholecalciferol (D-3) [Vitamin D] 2,000 unit PO DAILY 06/10/16 [History] CloNIDine HCl [Clonidine HCl] 0.2 mg PO Q8H PRN 06/10/16 [History] DiphenhydraMINE [Benadryl] 25 mg PO HS 06/10/16 [History] HydrOXYzine Pamoate [Vistaril] 50 mg PO TID PRN 06/10/16 [History] Lamotrigine [Lamictal] 100 mg PO AD 06/10/16 [History] Levothyroxine [Synthroid] 25 mcg PO 0630 06/10/16 [History] Lipase/Protease/Amylase [Creon Dr 6,000 Units Capsule] 1 each PO QID 06/10/16 [ History] Lisinopril-HCTZ 20-12.5 [Prinzide 20-12.5] 2 each PO DAILY 06/10/16 [History] Melatonin [Melatin] 6 mg PO HS 06/10/16 [History] Meloxicam [Mobic] 15 mg PO DAILY 06/10/16 [History] Naltrexone Microspheres [Vivitrol] 380 mg IM Q28D 06/10/16 [History] Omeprazole [PriLOSEC] 20 mg PO BIDAC 06/10/16 [History] Ondansetron HCl [Zofran] 4 mg PO TID PRN 06/10/16 [History] Promethazine [Phenergan] 25 mg PO BID 06/10/16 [History] Pseudoephedrine [Sudafed] 60 mg PO Q6H PRN 06/10/16 [History] Quetiapine Fumarate [Seroquel] 100 mg PO 1200 06/10/16 [History] Quetiapine Fumarate [Seroquel] 600 mg PO HS 06/10/16 [History] Sildenafil Citrate [Viagra] 50 mg PO AD PRN 06/10/16 [History] Terazosin HCl 4 mg PO HS 06/10/16 [History] Trazodone HCl 150 mg PO HS PRN 06/10/16 [History] Azithromycin [Zithromax] 250 mg PO DAILY #5 tablet 06/11/16 [Rx] Carvedilol [Coreg] 25 mg PO BID #60 tablet 06/11/16 [Rx] Allergies/Adverse Reactions: Allergies mupirocin [From Bactroban] Adverse Reaction (Verified 06/10/16 15:19) See Comments per [facility] Date of admission: 06/11/16 11:38 Primary care physician: [facility] Consults: 06/10/16 16:28 Consult to Psychiatry [CONS] Routine Consulting Provider: Aldair Singletary Reason for Consult: psychosis, agitation. Call Completed: No 06/10/16 18:20 Consult to Tube Cleaner [CONS] Routine Reason for SW Consult: Psych consult, pt from [place] Discharging clinician: Daria Tijerina Anticipated date of discharge: 06/12/16 - Patient Status Disposition: Home, Self-Care Condition: Good Functional capacity at discharge: independent ambulation Overall status at discharge: patient is back to baseline - Discharge Instructions Instructions: Chronic Hypertension (DC) Follow [facility] With: [facility] [Primary Care Provider] - Additional Instructions: Start Zyprexa 2.5 mg am and 5 mg hs for periodic delusional flare ups. - Diet and Activity Activity: resume usual activities as tolerated Diet: low fat, low cholesterol, low salt diet Hospital course: Mr. Smith is a 41 year old male with history of PTSD, bipolar disorder was admitted here with complaints of acute psychosis and bronchitis. He was treated for his symptoms with Augmentin and bronchodilators for bronchitis and he was placed back on his usual antipsychotic medications to treat his psychosis. His symptoms have improved since then. Psychiatric has been consulted. The patient is clinically doing better. He has been persistently hypotensive and I have increased his carvedilol to 25 mg twice daily. This seems to be controlling his blood pressure better. If the patient is cleared for psychiatric, he is stable for discharge. - Time Spent with Patient Total time spent providing and/or coordinating discharge services: Less than 30 minutes (25 min) - Constitutional Vitals: Temp Pulse Resp BP Pulse Ox 99.3 F 108 17 159/118 93 06/11/16 12:12 06/11/16 12:12 06/11/16 12:12 06/11/16 12:12 06/11/16 12:12 General appearance: Present: cooperative, A&O X 3, answers questions appropriately - Neck Neck exam general surgery: Present: supple, trachea midline. Absent: lymphadenopathy - Respiratory Respiratory exam: Present: rhonchi (in right lower lobe). Absent: accessory muscle use, rales, wheezes - Cardiovascular Cardiovascular exam: Present: RRR, +S1, +S2. Absent: diastolic murmur, gallop, rubs, systolic murmur - Extremities Exam Extremities exam: Present: warm, radial pulses palpable and symetrical. Absent : calf tenderness, cyanotic, pedal edema - Psychiatric Psychiatric exam: Present: anxious, flat affect - Skin Skin exam: Present: dry, intact - VTE Documentation of Mechanical Device: Intermittent pneumatic compression device - Attending Attestation This document has been at least partially created by RedT recognition technology by Dr. Tijerina. Errors in grammar, wording or other phrases may exist. If errors are found after the documentation is signed, they will be addressed individually in the addendum section of this document when appropriate.
[2016-06-11] MEDS ORDERED: Gabapentin 100 MG CAPSULE PO SCH (15:00)
--- NOTE | 2016-06-11 19:10 | Consult Note ---
Date of Encounter: 06/11/16 Time of Encounter: 18:45 Assessment & Recommendation (1) Bipolar disease, chronic Current visit: Yes Status: Acute History of Present Illness Requesting Physician: Daria Tijerina MD Reason for consult: Psychosis History of present illness: S-Mr. Smith is a 41 year old male , from [place] who is sent to [place] to attend the [facility] program for PTSD. 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 He vaguely recalls becoming delusional last night and believing that the president was here to receive him. He does not report any suicidal or homicidal thoughts . he has done 6 weeks of [facility]ANT programming at [facility] and wants to complete the program. Pt reports having been tried on different psychotropics over the years but does not recall all the names. O- Mod and affect euthymic and responsive of full range. No suicidal or homicidal ideation. Thought process linear and logical. No overt delusions currently present. No hallucinations. Insight and judjment fair. A- Complex PTSD with psychosis. P- Recommend d/cing Seroquel and starting Zyprexa 2.5 mg am and 5 mg hs. Pt willing to start this medication. Pt was educated on the benefits and risks of Zyprexa. No indication for inpatient psychiatric care at this time. CC: Daria Tijerina MD Past Med Surg Social Fam HX - Past Medical History Medical history: hypertension, other (Endocarditis) - Past Psychiatric History Psychiatric history: Reports: anxiety, PTSD. Denies: prior suicide attempt Family psychiatric history: Unknown Family History of Suicide: Unknown - Past Surgical History Surgical History: non-contributory - Social History Smoking Status: Former smoker Smokeless Tobacco Status: Yes Alcohol use: none Drug use: none, other (Previous IVDU) Medications & Allergies Acetaminophen [Tylenol] 650 mg PO TID PRN 06/10/16 [History] Baclofen 20 mg PO TID 06/10/16 [History] Cetirizine HCl [Zyrtec] 10 mg PO DAILY 06/10/16 [History] Cholecalciferol (D-3) [Vitamin D] 2,000 unit PO DAILY 06/10/16 [History] CloNIDine HCl [Clonidine HCl] 0.2 mg PO Q8H PRN 06/10/16 [History] DiphenhydraMINE [Benadryl] 25 mg PO HS 06/10/16 [History] HydrOXYzine Pamoate [Vistaril] 50 mg PO TID PRN 06/10/16 [History] Lamotrigine [Lamictal] 100 mg PO AD 06/10/16 [History] Levothyroxine [Synthroid] 25 mcg PO 0630 06/10/16 [History] Lipase/Protease/Amylase [Creon Dr 6,000 Units Capsule] 1 each PO QID 06/10/16 [ History] Lisinopril-HCTZ 20-12.5 [Prinzide 20-12.5] 2 each PO DAILY 06/10/16 [History] Melatonin [Melatin] 6 mg PO HS 06/10/16 [History] Meloxicam [Mobic] 15 mg PO DAILY 06/10/16 [History] Naltrexone Microspheres [Vivitrol] 380 mg IM Q28D 06/10/16 [History] Omeprazole [PriLOSEC] 20 mg PO BIDAC 06/10/16 [History] Ondansetron HCl [Zofran] 4 mg PO TID PRN 06/10/16 [History] Promethazine [Phenergan] 25 mg PO BID 06/10/16 [History] Pseudoephedrine [Sudafed] 60 mg PO Q6H PRN 06/10/16 [History] Quetiapine Fumarate [Seroquel] 100 mg PO 1200 06/10/16 [History] Quetiapine Fumarate [Seroquel] 600 mg PO HS 06/10/16 [History] Sildenafil Citrate [Viagra] 50 mg PO AD PRN 06/10/16 [History] Terazosin HCl 4 mg PO HS 06/10/16 [History] Trazodone HCl 150 mg PO HS PRN 06/10/16 [History] Azithromycin [Zithromax] 250 mg PO DAILY #5 tablet 06/11/16 [Rx] Carvedilol [Coreg] 25 mg PO BID #60 tablet 06/11/16 [Rx] Allergies mupirocin [From Bactroban] Adverse Reaction (Verified 06/10/16 15:19) See Comments per [facility] list Review of Systems Psychiatric: Reports: anxiety. Denies: auditory hallucinations, visual hallucinations, hopelessness Mental Status Exam Level of alertness: Sedated Patient appearance: Appropriate, Well Groomed Behavior: calm, cooperative Psychomotor activity: Normal Eye contact: Maintains Eye Contact Mood description: Euthymic/stable Affect description: congruent with mood Speech pattern: Normal rate, Normal rhythm Speech volume: Normal Thought process: Intact, Logical, Linear, Goal Oriented Thought content: Yes Intact, No Suicidal ideation, No Homicidal ideation, No Overt delusions, No Paranoid delusion, No Grandiose delusion Perceptual disturbances: No Reacting to internal stimuli, No Auditory hallucinations, No Visual hallucinations Attention span: Capable of Focused Attention Memory description: Grossly Intact, Remote Intact Intelligence estimate: Average Judgment: Fair Insight: Full Results - Vital Signs Vital signs: Temp Pulse Resp BP Pulse Ox 98.5 F 110 16 126/82 94 06/11/16 15:28 06/11/16 15:28 06/11/16 15:28 06/11/16 15:28 06/11/16 15:28 - Labs Labs: Laboratory Last Values WBC 7.4 K/mcL (4.3-11.1) 06/11/16 03:55 RBC 5.18 M/mcL (4.19-5.50) 06/11/16 03:55 Hgb 14.8 g/dL (12.9-16.9) 06/11/16 03:55 Hct 43.9 % (37.5-50.1) 06/11/16 03:55 MCV 84.7 fL (83.0-100.0) 06/11/16 03:55 MCH 28.6 pg (28.0-33.3) 06/11/16 03:55 MCHC 33.7 g/dL (31.6-35.5) 06/11/16 03:55 RDW 13.9 % (11.5-14.5) 06/11/16 03:55 Plt Count 262 K/mcL (140-400) 06/11/16 03:55 MPV 9.6 fL (9.4-12.4) 06/11/16 03:55 Immature Gran % 0.8 % (0-4) 06/11/16 03:55 Seg Neutrophils % 59.4 % 06/11/16 03:55 Lymphocytes % 20.3 % 06/11/16 03:55 Monocytes % 19.2 % 06/11/16 03:55 Eosinophils % 0.0 % 06/11/16 03:55 Basophils % 0.3 % 06/11/16 03:55 Neutrophils # 4.4 K/mcL (1.6-8.9) 06/11/16 03:55 Lymphocytes # 1.5 K/mcL (0.6-4.6) 06/11/16 03:55 Monocytes # 1.4 K/mcL (0.0-1.3) H 06/11/16 03:55 Eosinophils # 0.0 K/mcL (0.0-0.6) 06/11/16 03:55 Basophils # 0.0 K/mcL (0.0-0.2) 06/11/16 03:55 Reactive Lymphocytes Present (Not Present) A 06/11/16 03:55 Platelet Estimate Normal (Normal) 06/11/16 03:55 PT 11.3 Seconds (9.4-12.1) 06/09/16 21:20 INR 1.0 06/09/16 21:20 APTT 27.6 Seconds (26.0-36.0) 06/09/16 21:20 Sodium 133 mEq/L (136-145) L 06/11/16 03:55 Potassium 3.6 mEq/L (3.5-4.5) 06/11/16 03:55 Chloride 98 mEq/L (98-109) 06/11/16 03:55 Carbon Dioxide 21 mEq/L (19-29) 06/11/16 03:55 BUN 21 mg/dL (8-26) 06/11/16 03:55 Creatinine 0.94 mg/dL (0.72-1.25) 06/11/16 03:55 Est GFR ( Amer) > 60 (> 60) 06/11/16 03:55 Est GFR (Non-Af Amer) > 60 (> 60) 06/11/16 03:55 BUN/Creatinine Ratio 22 (6-26) 06/11/16 03:55 Glucose 105 mg/dL (70-99) H 06/11/16 03:55 Calculated Osmolality 279 (280-300) L 06/11/16 03:55 Lactic Acid 1.5 mmol/L (0.5-2.2) 06/09/16 21:20 Calcium 9.6 mg/dL (8.6-10.8) 06/11/16 03:55 Phosphorus 2.2 mg/dL (2.3-4.7) L 06/09/16 22:18 Magnesium 2.5 mg/dL (1.6-2.6) 06/09/16 22:18 Total Bilirubin 0.5 mg/dL (0.2-1.2) 06/09/16 22:18 Direct Bilirubin 0.2 mg/dL (0.0-0.5) 06/09/16 22:18 Indirect Bilirubin 0.3 mg/dL (0.0-1.2) 06/09/16 22:18 AST 60 Units/L (5-34) H 06/09/16 22:18 ALT 41 Units/L (0-55) 06/09/16 22:18 Alkaline Phosphatase 142 Units/L (38-126) H 06/09/16 22:18 Troponin I 0.00 ng/mL (0-0.03) 06/09/16 22:18 Serum Total Protein 8.9 g/dL (6.0-8.3) H 06/09/16 22:18 Albumin 4.2 g/dL (3.5-5.0) 06/09/16 22:18 Globulin 4.7 g/dL (2.4-3.5) H 06/09/16 22:18 Albumin/Globulin Ratio 0.9 (1.1-2.2) L 06/09/16 22:18 Urine Color Yellow (Yellow) 06/10/16 01:00 Urine Clarity Clear (Clear) 06/10/16 01:00 Urine pH 6.5 pH Units (5.0-8.0) 06/10/16 01:00 Ur Specific [place] 1.023 (1.010-1.025) 06/10/16 01:00 Urine Protein Negative mg/dL (Neg-Trace) 06/10/16 01:00 Urine Glucose (UA) Normal mg/dL (Normal) 06/10/16 01:00 Urine Ketones Negative mg/dL (Negative) 06/10/16 01:00 Urine Blood Negative (Negative) 06/10/16 01:00 Urine Nitrite Negative (Negative) 06/10/16 01:00 Urine Bilirubin Negative (Negative) 06/10/16 01:00 Urine Urobilinogen Normal mg/dL (Normal) 06/10/16 01:00 Ur Leukocyte Esterase Negative (Negative) 06/10/16 01:00 Ur Culture Indicated? NO (NO) 06/10/16 01:00 Urine Opiates Screen Negative ng/mL (Oeoyjh=096) 06/10/16 01:00 Ur Barbiturates Screen Negative ng/mL (Chngrl=136) 06/10/16 01:00 Ur Phencyclidine Scrn Negative ng/mL (Cutoff=25) 06/10/16 01:00 Ur Amphetamines Screen Negative ng/mL (Opnksf=6550) 06/10/16 01:00 U Benzodiazepines Scrn Positive ng/mL (Whepgk=686) H 06/10/16 01:00 Urine Cocaine Screen Negative ng/mL (Cutoff= 300) 06/10/16 01:00 U Marijuana (THC) Screen Negative ng/mL (Cutoff = 50) 06/10/16 01:00 Ethyl Alcohol < 10 mg/dL (0-10) 06/09/16 22:18 Consult Discharge Plan - Plan Instructions: Chronic Hypertension (DC) Additional Instructions: Start Zyprexa 2.5 mg am and 5 mg hs for periodic delusional flare ups. [facility]errals[facility]Primary Care Provider[facility] - Prescriptions: Azithromycin [Zithromax] 250 mg PO DAILY #5 tablet Carvedilol [Coreg] 25 mg PO BID #60 tablet
[2016-06-11] MEDS ORDERED: Gabapentin 400 MG CAPSULE PO SCH (21:00)
[2016-06-11] MEDS: Melatonin 3 MG TABLET PO SCH (21:20)
[2016-06-12] MEDS: Levothyroxine 25 MCG TABLET PO SCH (06:05)
[2016-06-12] MEDS ORDERED: 0.9 % Sodium Chloride 1,000 ML ONE (07:52)
[2016-06-12] MEDS ORDERED: 0.9 % Sodium Chloride 500 ML IVC ONE ×2 (08:02→10:13)
[2016-06-12] MEDS: Lisinopril-HCTZ 20-12.5mg TABLET PO SCH (09:29)
[2016-06-12] MEDS: Baclofen 10 MG TABLET PO SCH ×3 (09:29→22:33)
[2016-06-12] MEDS: Azithromycin 250 MG TABLET PO SCH (09:29)
--- NOTE | 2016-06-12 16:40 | Internal Med Progress Note ---
Date of Encounter: 06/12/16 Time of Encounter: 10:00 - Assessment and plan (1) Hypertension Current Visit: Yes Status: Acute Assessment and plan: Blood pressure is low now. Suspect the patient is not compliant with home blood pressure medication. Will hold BP medication now and adjust the dose blood pressure medication for tomorrow. Closely monitor blood pressure. Qualifiers: Qualified Code(s): I10 - Essential (primary) hypertension (2) Bronchitis Current Visit: Yes Status: Acute Assessment and plan: Continue by mouth azithromycin and symptomatic treatment. (3) Bipolar disease, chronic Current Visit: Yes Status: Acute Assessment and plan: Psychiatry consult appreciated. Switch Seroquel to zeprexa per psych recommendation. (4) DVT prophylaxis Current Visit: Yes Status: Acute Assessment and plan: EPCD - Subjective Interval history: Patient is a 41-year-old male admitted for acute bronchitis. His past medical history is significant for hypertension, depression, PTSD. I saw and examined the patient today. He is awake alert. However, his blood pressure is at lower side, Lowest at 70s, which improved after bolus IV fluid. Will hold all the blood pressure medication and closely monitor patient. Patient denies dizziness or lightheadedness. Psychiatry consult appreciated, recommendation has been followed. - Constitutional Vitals: Temp Pulse Resp BP Pulse Ox 98.3 F 109 20 81/49 91 06/12/16 07:32 06/12/16 07:32 06/12/16 07:32 06/12/16 15:25 06/11/16 21:17 General appearance: Present: cooperative, A&O X 3, answers questions appropriately - Head Head exam: Present: atraumatic, normocephalic - Eye Eye exam: Present: PERRL, conjuntiva pink, sclera anicteric Pupils: Present: PERRL - Neck Neck exam general surgery: Present: supple, trachea midline. Absent: lymphadenopathy - Respiratory Respiratory exam: Present: CTAB. Absent: accessory muscle use, rales, rhonchi, wheezes - Cardiovascular Cardiovascular exam: Present: RRR, +S1, +S2. Absent: diastolic murmur, gallop, rubs, systolic murmur - GI/Abdominal GI/Abdominal exam: Present: normal bowel sounds, soft, no peritoneal signs. Absent: distended, tenderness - Extremities Exam Extremities exam: Present: warm, radial pulses palpable and symetrical. Absent : calf tenderness, cyanotic, pedal edema - Neurological Exam Neurological exam: Present: CN II-XII intact, oriented X3, no focal deficits. Absent: pronater drift, facial droop, speech deficit - Skin Skin exam: Present: dry, intact Internal Medicine: Result - Labs CBC & Chem 7: 06/11/16 03:55 06/11/16 03:55 - ABG Interpretation ABG results: PT/INR, D-dimer PT 11.3 Seconds (9.4-12.1) 06/09/16 21:20 - VTE Documentation of Mechanical Device: Intermittent pneumatic compression device Consult Discharge Plan - Plan Instructions: Chronic Hypertension (DC) Additional Instructions: Start Zyprexa 2.5 mg am and 5 mg hs for periodic delusional flare ups. [facility]errals: [facility] [Primary Care Provider] - Prescriptions: Azithromycin [Zithromax] 250 mg PO DAILY #5 tablet Carvedilol [Coreg] 25 mg PO BID #60 tablet
[2016-06-12] MEDS ORDERED: OLANZapine 5 MG TAB.RAPDIS PO SCH (21:00)
[2016-06-12] MEDS: Melatonin 3 MG TABLET PO SCH (22:34)
[2016-06-13 04:37] LABS: Basophils % 0.4 %; Eosinophils # 0.1 K/mcL (0.0-0.6); Eosinophils % 1.4 %; Hematocrit 40.3 % (37.5-50.1); Hemoglobin 13.6 g/dL (12.9-16.9); Immature Granulocytes % 0.7 % (0-4); Lymphocytes # 2.8 K/mcL (0.6-4.6); Lymphocytes % 39.5 %; Mean Corpuscular HGB Conc 33.7 g/dL (31.6-35.5); Mean Corpuscular Hemoglobin 28.6 pg (28.0-33.3); Mean Corpuscular Volume 84.8 fL (83.0-100.0); Mean Platelet Volume 9.8 fL (9.4-12.4); Monocytes % 14.6 %; Neutrophils # 3.1 K/mcL (1.6-8.9); Platelet Count 219 K/mcL (140-400); Red Blood Count 4.75 M/mcL (4.19-5.50); Red Cell Distribution Width 13.3 % (11.5-14.5); Segmented Neutrophils % 43.4 %
[2016-06-13] MEDS: Levothyroxine 25 MCG TABLET PO SCH (05:51)
[2016-06-13 06:15] LABS: Large Platelets Present (Not Present); Platelet Estimate Normal (Normal); Reactive Lymphocytes Present (Not Present)
[2016-06-13] MEDS: Ipratropium/Albuterol Neb 3 ML IH PRN (08:19)
[2016-06-13] MEDS ORDERED: OLANZapine 5 MG TAB.RAPDIS PO SCH (09:00)
[2016-06-13] MEDS ORDERED: Lisinopril-HCTZ 20-12.5mg TABLET PO SCH (09:00)
[2016-06-13] MEDS: Baclofen 10 MG TABLET PO SCH (09:16)
[2016-06-13] MEDS: Azithromycin 250 MG TABLET PO SCH (09:17)
[2016-06-13 11:34] VITALS: BP 141/99
--- NOTE | 2016-06-13 12:53 | Internal Med Progress Note ---
Date of Encounter: 06/13/16 Time of Encounter: 10:00 - Assessment and plan (1) Hypertension Current Visit: Yes Status: Acute Assessment and plan: Blood pressure is stable today on adjusted dose. Will continue current dose. Pt is educated to monitor blood pressure at home. Qualifiers: Qualified Code(s): I10 - Essential (primary) hypertension (2) Bronchitis Current Visit: Yes Status: Acute Assessment and plan: Continue by mouth azithromycin and symptomatic treatment. (3) Bipolar disease, chronic Current Visit: Yes Status: Acute Assessment and plan: Psychiatry consult appreciated. Switch Seroquel to zeprexa per psych recommendation. (4) DVT prophylaxis Current Visit: Yes Status: Acute Assessment and plan: EPCD - Time Spent With Patient 25 - 35 minutes - Subjective Interval history: Patient is a 41-year-old male admitted for acute bronchitis. His past medical history is significant for hypertension, depression, PTSD. I saw and examined the patient today. He is awake alert. His BP med has been adjusted to Lisinopril-HCTZ 20/12.5 one tab qd (previous two tabs a day) and keep carvedilol 12.5mg po bid. His BP is stable on the new medication dose. Will d/c pt home today. - Constitutional Vitals: Temp Pulse Resp BP Pulse Ox 98.1 F 98 17 141/99 95 06/13/16 11:33 06/13/16 11:33 06/13/16 11:33 06/13/16 11:33 06/13/16 11:33 General appearance: Present: cooperative, A&O X 3, answers questions appropriately Internal Medicine: Result - Labs CBC & Chem 7: 06/13/16 04:15 06/11/16 03:55 Labs: Short CBC 06/13/16 Range/Units 04:15 WBC 7.1 (4.3-11.1) K/mcL Hgb 13.6 (12.9-16.9) g/dL Hct 40.3 (37.5-50.1) % Plt Count 219 (140-400) K/mcL Neutrophils # 3.1 (1.6-8.9) K/mcL - ABG Interpretation ABG results: PT/INR, D-dimer PT 11.3 Seconds (9.4-12.1) 06/09/16 21:20 - VTE Documentation of Mechanical Device: Intermittent pneumatic compression device Consult Discharge Plan - Plan Instructions: Chronic Hypertension (DC) Additional Instructions: Start Zyprexa 2.5 mg am and 5 mg hs for periodic delusional flare ups. [facility]errals: [facility] [Primary Care Provider] - 06/20/16 8:15 am Prescriptions: Azithromycin [Zithromax] 250 mg PO DAILY #5 tablet Carvedilol [Coreg] 25 mg PO BID #60 tablet
== END 2016-06-13 13:15 | disposition home or self-care (01) | DRG 202 ==
LOC: 3BNU 21:07 → EMEROO 21:07 → SUATTDRO 06-10 15:12 → 3BNU 06-10 16:04 → SUATTDRO 06-11 11:38
PROVIDERS: ADMIT Internal Medicine; ATTEND Internal Medicine

== ENCOUNTER 2018-10-01 09:03 | Inpatient (IN) ==
[2018-10-01] MEDS ORDERED: 0.9 % Sodium Chloride 1,000 ML ONE ×2 (09:13→09:15)
[2018-10-01] MEDS ORDERED: 0.9 % Sodium Chloride 1,000 ML IVC ONE (09:21)
[2018-10-01] MEDS ORDERED: *HR* Rocuronium Bromide 50 MG/5 ML VIAL IVP ONE ×2 (09:21→09:55)
[2018-10-01] MEDS ORDERED: *HR* Etomidate 20 MG/10 ML AMPUL IVP ONE (09:21)
[2018-10-01 09:32] LABS: Basophils % 0.4 %; Eosinophils % 0.4 %; Hematocrit 41.5 % (37.5-50.1); Hemoglobin 13.5 g/dL (12.9-16.9); Immature Granulocytes % 0.4 % (0-4); Lymphocytes # 0.6 K/mcL (0.6-4.6); Mean Corpuscular HGB Conc 32.5 g/dL (31.6-35.5); Mean Corpuscular Hemoglobin 31.4 pg (28.0-33.3); Mean Corpuscular Volume 96.5 fL (83.0-100.0); Mean Platelet Volume 10.2 fL (9.4-12.4); Monocytes # 0.5 K/mcL (0.0-1.3); Monocytes % 9.9 %; Neutrophils # 4.2 K/mcL (1.6-8.9); Platelet Count 246 K/mcL (140-400); Segmented Neutrophils % 77.9 %; White Blood Count 5.3 K/mcL (4.3-11.1)
[2018-10-01 09:36] LABS: Bacteria,Urine None Seen per hpf (None-Few); Bilirubin,Urine Small (Negative); Blood,Urine Negative (Negative); Clarity,Urine Clear (Clear); Color,Urine Dark Yellow (Yellow); Glucose,Urine (UA) Normal (Normal); Ketones,Urine Trace mg/dL (Negative); Leukocyte Esterase,Urine Negative (Negative); Nitrite,Urine Negative (Negative); PH,Urine 5.5 pH Units (5.0-8.0); Protein,Urine 100 mg/dL (Neg-Trace); RBC,Urine 30-50 per hpf (0-3); Specific Gravity,Urine > 1.030 (1.010-1.025); Squamous Epithelial Cell,Urine Many per lpf (None-Few); Urobilinogen,Urine Normal (Normal)
[2018-10-01] MEDS ORDERED: *HR* Midazolam HCl 5 MG/5 ML VIAL IVP ONE (10:03)
[2018-10-01] MEDS ORDERED: Verapamil 5 MG/2 ML VIAL ONE (10:04)
[2018-10-01 10:05] LABS: Hyaline Casts,Urine Many per lpf (None-Few)
[2018-10-01 10:06] LABS: Mucus,Urine Many (Few)
[2018-10-01 10:07] LABS: Renal Epithelial Cells,Urine Few per hpf (None-Few); Transitional Epi Cells,Urine Few per hpf (None-Few)
[2018-10-01 10:21] LABS: Amphetamine Screen,Urine Negative ng/mL (Cutoff=1000); Barbiturate Screen,Urine Negative ng/mL (Cutoff=200); Benzodiazepines Screen,Urine Negative ng/mL (Cutoff=200); Cannabinoid Screen,Urine Negative ng/mL (Cutoff = 50); Cocaine Screen,Urine Negative ng/mL (Cutoff= 300); Opiate Screen,Urine Negative ng/mL (Cutoff=300); Phencyclidine Screen,Urine Negative ng/mL (Cutoff=25)
[2018-10-01 10:40] LABS: ABG Base Excess -2 mEq/L (-2 to 3); ABG HCO3 23 mEq/L (21-27); ABG Oxygen Saturation 96 % (95-98); ABG PCO2 40 mmHg (35-45); ABG PH 7.38 pH Units (7.32-7.45); ABG PO2 83 mmHg (85-104); ABG TCO2 25 mEq/L (20-26); Blood Gas Modality ASSIST CONTROL; Blood Gas VT 550 cc
[2018-10-01] MEDS: Norepinephrine 4 MG in D5% in Water 250 ML IVC SCH (10:52)
[2018-10-01] MEDS: FentaNYL (PF) 1,000 MCG in 0.9 % Sodium Chloride 80 ML IVC SCH (10:56)
[2018-10-01 11:07] LABS: Acetaminophen < 10 mcg/mL (10-20); Alanine Aminotransferase 34 Units/L (7-52); Albumin 3.5 g/dL (3.5-5.7); Albumin/Globulin Ratio 1.7 (1.1-2.2); Alkaline Phosphatase 98 Units/L (34-104); Aspartate Amino Transferase 37 Units/L (13-39); BUN/Creatinine Ratio 9 (6-26); Bilirubin,Direct 0.1 mg/dL (0.0-0.2); Bilirubin,Indirect 0.4 mg/dL (0.0-1.2); Bilirubin,Total 0.5 mg/dL (0.3-1.0); Blood Urea Nitrogen 9 mg/dL (6-20); Calcium 7.9 mg/dL (8.6-10.3); Carbon Dioxide 25 mEq/L (23-29); Chloride 107 mEq/L (98-107); Ethanol < 10 mg/dL (Less than 10); Globulin 2.1 g/dL (2.4-3.5); Glucose 165 mg/dL (70-105); Osmolality,Calculated 284 (280-300); Potassium 4.4 mEq/L (3.5-5.1); Salicylate < 2.5 mg/dL (15.0-30.0); Sodium 136 mEq/L (136-145); Total Protein 5.6 g/dL (6.4-8.9); eGFR For African Americans > 60 (> 60); eGFR For Non-African Americans > 60 (> 60)
[2018-10-01] MEDS ORDERED: Naloxone 0.4 MG/ML INJ IVP PRN (11:10)
[2018-10-01] MEDS ORDERED: Artificial Tears SOLN 15 ML BOTTLE BOTH EYES PRN (11:21)
[2018-10-01] MEDS ORDERED: Dextrose Gel 15 GM/37.5 ML TUBE PO PRN ×2 (11:26)
[2018-10-01] MEDS ORDERED: D5% in Water 1,000 ML IVC PRN (11:26)
[2018-10-01] MEDS ORDERED: *HR* Dextrose 50 % in Water (Syg) 50 ML SYRINGE IVP PRN (11:26)
[2018-10-01] MEDS ORDERED: 0.9 % Sodium Chloride 250 ML ONE (12:58)
[2018-10-01 15:54] LABS: ABG Base Excess -3 mEq/L (-2 to 3); ABG HCO3 24 mEq/L (21-27); ABG Oxygen Saturation 85 % (95-98); ABG PCO2 45 mmHg (35-45); ABG PH 7.33 pH Units (7.32-7.45); ABG PO2 55 mmHg (85-104); ABG TCO2 25 mEq/L (20-26); Blood Gas VT 500 cc
[2018-10-01] MEDS: Artificial Tears SOLN 15 ML BOTTLE BOTH EYES SCH ×4 (17:17→23:04)
[2018-10-01] MEDS: Chlorhexidine Rinse 15 ML MOUTHWASH MM SCH ×2 (17:17→20:28)
[2018-10-02] MEDS: FentaNYL (PF) 1,000 MCG in 0.9 % Sodium Chloride 80 ML IVC SCH (01:02)
[2018-10-02] MEDS: Artificial Tears SOLN 15 ML BOTTLE BOTH EYES SCH ×3 (04:10→10:18)
[2018-10-02 04:18] LABS: Basophils % 0.2 %; Eosinophils % 0.3 %; Hemoglobin 12.7 g/dL (12.9-16.9); Immature Granulocytes % 0.4 % (0-4); Lymphocytes % 8.3 %; Mean Corpuscular HGB Conc 31.8 g/dL (31.6-35.5); Mean Corpuscular Hemoglobin 31.8 pg (28.0-33.3); Mean Platelet Volume 10.1 fL (9.4-12.4); Monocytes # 1.2 K/mcL (0.0-1.3); Monocytes % 9.3 %; Neutrophils # 10.2 K/mcL (1.6-8.9); Platelet Count 178 K/mcL (140-400); Red Cell Distribution Width 12.3 % (11.5-14.5); Segmented Neutrophils % 81.5 %
[2018-10-02 04:19] LABS: White Blood Count 12.5 K/mcL (4.3-11.1)
[2018-10-02 04:37] LABS: BUN/Creatinine Ratio 10 (6-26); Blood Urea Nitrogen 10 mg/dL (6-20); Carbon Dioxide 25 mEq/L (23-29); Chloride 107 mEq/L (98-107); Glucose 132 mg/dL (70-105); Osmolality,Calculated 285 (280-300); Potassium 4.6 mEq/L (3.5-5.1); Sodium 137 mEq/L (136-145); eGFR For African Americans > 60 (> 60); eGFR For Non-African Americans > 60 (> 60)
[2018-10-02 04:58] LABS: ABG Base Excess 0 mEq/L (-2 to 3); ABG HCO3 25 mEq/L (21-27); ABG Oxygen Saturation 93 % (95-98); ABG PCO2 41 mmHg (35-45); ABG PO2 66 mmHg (85-104); ABG TCO2 26 mEq/L (20-26); Blood Gas Modality ASSIST CONTROL; Blood Gas VT 500 cc
[2018-10-02] MEDS: *HR* Heparin 5,000 UNIT/ML VIAL SQ SCH ×3 (06:03→18:51)
[2018-10-02] MEDS ORDERED: Ringers Solution, Lactated 1,000 ML IVC ONE (07:22)
[2018-10-02] MEDS: Chlorhexidine Rinse 15 ML MOUTHWASH MM SCH (07:55)
[2018-10-02] MEDS ORDERED: Piperacillin/Tazobactam 3.375 GM in 0.9 % Sodium Chloride Mini Bag 100 ML IVPB SCH ×2 (08:00→14:00)
[2018-10-02] MEDS: Norepinephrine 4 MG in D5% in Water 250 ML IVC SCH (08:43)
[2018-10-02] MEDS ORDERED: Pantoprazole 40 MG VIAL IVP SCH (09:00)
[2018-10-02] MEDS ORDERED: Chloraseptic Spray 177 ML BOTTLE MM PRN (09:03)
[2018-10-02] MEDS ORDERED: Acetaminophen 325 MG TABLET PO PRN (10:18)
[2018-10-02] MEDS ORDERED: Acetaminophen IV 1,000 MG/100 ML INFUS..BTL IVPB ONE (11:50)
[2018-10-02] MEDS ORDERED: Dextrose Gel 15 GM/37.5 ML TUBE PO PRN ×2 (12:48)
[2018-10-02] MEDS ORDERED: D5% in Water 1,000 ML IVC PRN (12:48)
[2018-10-02] MEDS ORDERED: *HR* Dextrose 50 % in Water (Syg) 50 ML SYRINGE IVP PRN (12:48)
[2018-10-02] MEDS ORDERED: amLODIPine 5 MG TABLET PO SCH (13:00)
[2018-10-02] MEDS: Piperacillin/Tazobactam 3.375 GM in 0.9 % Sodium Chloride Mini Bag 100 ML IVPB SCH ×2 (14:41→23:48)
[2018-10-02] MEDS: 0.9 % Sodium Chloride 1,000 ML IVC SCH (16:03)
[2018-10-02] MEDS: Chloraseptic Spray 177 ML BOTTLE MM PRN (17:30)
[2018-10-02] MEDS: Gabapentin 100 MG CAPSULE PO SCH (21:00)
[2018-10-02] MEDS: lamoTRIgine 100 MG TABLET PO SCH (21:00)
[2018-10-02] MEDS: Acetaminophen 325 MG TABLET PO PRN (22:53)
[2018-10-03] MEDS: 0.9 % Sodium Chloride 1,000 ML IVC SCH (01:55)
[2018-10-03] MEDS ORDERED: *HR* LORazepam 2 MG/ML VIAL IVP ONE ×2 (02:56→22:56)
[2018-10-03 05:39] LABS: Hemoglobin 13.5 g/dL (12.9-16.9); Mean Corpuscular HGB Conc 33.8 g/dL (31.6-35.5); Mean Corpuscular Hemoglobin 31.4 pg (28.0-33.3); Mean Platelet Volume 10.3 fL (9.4-12.4); Platelet Count 174 K/mcL (140-400); Red Cell Distribution Width 11.7 % (11.5-14.5); White Blood Count 15.1 K/mcL (4.3-11.1)
[2018-10-03] MEDS: *HR* Heparin 5,000 UNIT/ML VIAL SQ SCH ×2 (05:45→17:37)
[2018-10-03 06:00] LABS: BUN/Creatinine Ratio 10 (6-26); Blood Urea Nitrogen 8 mg/dL (6-20); Calcium 8.9 mg/dL (8.6-10.3); Carbon Dioxide 22 mEq/L (23-29); Chloride 103 mEq/L (98-107); Glucose 119 mg/dL (70-105); Osmolality,Calculated 285 (280-300); Potassium 3.5 mEq/L (3.5-5.1); Sodium 138 mEq/L (136-145); eGFR For African Americans > 60 (> 60); eGFR For Non-African Americans > 60 (> 60)
[2018-10-03] MEDS: Lisinopril 20 MG TABLET PO SCH (07:58)
[2018-10-03] MEDS: Acetaminophen 325 MG TABLET PO PRN ×2 (07:58→18:42)
[2018-10-03] MEDS: lamoTRIgine 100 MG TABLET PO SCH ×2 (07:58→20:03)
[2018-10-03] MEDS: Gabapentin 100 MG CAPSULE PO SCH ×3 (07:58→20:03)
[2018-10-03] MEDS: Piperacillin/Tazobactam 3.375 GM in 0.9 % Sodium Chloride Mini Bag 100 ML IVPB SCH (07:59)
[2018-10-03] MEDS: Loratadine 10 MG TABLET PO SCH (07:59)
[2018-10-03] MEDS: amLODIPine 5 MG TABLET PO SCH (07:59)
[2018-10-03] MEDS: Pantoprazole 40 MG VIAL IVP SCH (08:01)
[2018-10-03] MEDS: Chloraseptic Spray 177 ML BOTTLE MM PRN ×2 (14:23→18:42)
[2018-10-03] MEDS ORDERED: cloNIDine HCl 0.1 MG TABLET PO ONE (15:05)
[2018-10-03] MEDS ORDERED: hydrALAZINE 25 MG TABLET PO ONE (16:39)
[2018-10-03] MEDS: BuPROPion XL (24 HR) 150 MG TABLET PO SCH (17:37)
[2018-10-03] MEDS: Ipratropium/Albuterol Neb 3 ML IH PRN (17:41)
[2018-10-03] MEDS ORDERED: Hydrocortisone Sodium Succ 100 MG/2 ML VIAL IVP ONE (18:56)
[2018-10-04] MEDS: Acetaminophen 325 MG TABLET PO PRN (01:17)
[2018-10-04] MEDS: *HR* Heparin 5,000 UNIT/ML VIAL SQ SCH (05:38)
[2018-10-04 07:41] LABS: Basophils % 0.2 %; Eosinophils % 0.3 %; Hematocrit 42.9 % (37.5-50.1); Hemoglobin 14.1 g/dL (12.9-16.9); Immature Granulocytes % 0.6 % (0-4); Lymphocytes # 0.9 K/mcL (0.6-4.6); Lymphocytes % 7.8 %; Mean Corpuscular HGB Conc 32.9 g/dL (31.6-35.5); Mean Corpuscular Hemoglobin 31.4 pg (28.0-33.3); Mean Corpuscular Volume 95.5 fL (83.0-100.0); Mean Platelet Volume 10.8 fL (9.4-12.4); Monocytes # 1.1 K/mcL (0.0-1.3); Monocytes % 9.2 %; Neutrophils # 9.8 K/mcL (1.6-8.9); Platelet Count 185 K/mcL (140-400); Red Blood Count 4.49 M/mcL (4.19-5.50); Red Cell Distribution Width 11.7 % (11.5-14.5); Segmented Neutrophils % 81.9 %
[2018-10-04 07:52] LABS: BUN/Creatinine Ratio 15 (6-26); Blood Urea Nitrogen 13 mg/dL (6-20); Calcium 9.4 mg/dL (8.6-10.3); Carbon Dioxide 23 mEq/L (23-29); Chloride 102 mEq/L (98-107); Glucose 106 mg/dL (70-105); Osmolality,Calculated 285 (280-300); Potassium 4.1 mEq/L (3.5-5.1); Sodium 137 mEq/L (136-145); eGFR For African Americans > 60 (> 60); eGFR For Non-African Americans > 60 (> 60)
[2018-10-04] MEDS: Loratadine 10 MG TABLET PO SCH (08:40)
[2018-10-04] MEDS: BuPROPion XL (24 HR) 150 MG TABLET PO SCH (08:40)
[2018-10-04] MEDS: Gabapentin 100 MG CAPSULE PO SCH (08:40)
[2018-10-04] MEDS: Pantoprazole 40 MG VIAL IVP SCH (08:40)
[2018-10-04] MEDS: Lisinopril 20 MG TABLET PO SCH (08:40)
[2018-10-04] MEDS: amLODIPine 5 MG TABLET PO SCH (08:40)
[2018-10-04] MEDS: lamoTRIgine 100 MG TABLET PO SCH (08:44)
[2018-10-04] MEDS: Ipratropium/Albuterol Neb 3 ML IH PRN (10:26)
[2018-10-04] MEDS ORDERED: Hydrocortisone Sodium Succ 100 MG/2 ML VIAL IVP ONE (11:16)
[2018-10-04 12:18] VITALS: BP 150/92
[2018-10-04] MEDS: Racepinephrine Neb 0.5 ML VIAL IH PRN ×4 (12:50→14:05)
[2018-10-04] MEDS ORDERED: *HR* Etomidate 20 MG/10 ML AMPUL IVP ONE (14:20)
[2018-10-04] MEDS ORDERED: *HR* Rocuronium Bromide 100 MG/10 ML VIAL IVC ONE (14:20)
[2018-10-04] MEDS ORDERED: Hydrocortisone Sodium Succ 100 MG/2 ML VIAL IVP SCH (16:00)
== END 2018-10-04 14:21 | disposition other institution (70) | DRG 917 ==
LOC: EMEROOARM 09:03 → ICNU 13:35 → SUATTDRO 13:35 → ICNU 14:57 → 3BNU 10-02 14:27
PROVIDERS: ADMIT Internal Medicine Hospice and Palliative Medicine; ATTEND Internal Medicine

== ENCOUNTER 2019-11-24 06:50 | Inpatient (IN) ==
[2019-11-24] MEDS ORDERED: *HR* Propofol 200 MG/20 ML VIAL IVP ONE (07:25)
[2019-11-24] MEDS ORDERED: Dexamethasone 4 MG/ML VIAL ONE (07:26)
[2019-11-24] MEDS ORDERED: CeFAZolin Syr 2,000MG/20 ML 2,000 MG/20 ML SYRINGE IVPB ONE (07:26)
[2019-11-24] MEDS ORDERED: Lidocaine HCL 4 ML Topical Solution (Laryng-O-Jet Kit Sterile Pak) TP ONE (07:26)
[2019-11-24] MEDS ORDERED: Ondansetron 4 MG/2 ML VIAL ONE (07:26)
[2019-11-24] MEDS ORDERED: *HR* Succinylcholine 200 MG/10 ML VIAL IVP ONE (07:26)
[2019-11-24] MEDS ORDERED: Lidocaine -MPF 2% 2 ML VIAL ONE (07:26)
[2019-11-24] MEDS ORDERED: Ringers Solution, Lactated 1,000 ML IVC SCH ×2 (07:30→11:17)
[2019-11-24] MEDS ORDERED: Pregabalin 75 MG CAPSULE PO ONE (07:59)
[2019-11-24] MEDS ORDERED: *HR* Labetalol 20 MG/4 ML SYRINGE IVP PRN (07:59)
[2019-11-24] MEDS ORDERED: Acetaminophen IV 1,000 MG/100 ML BAG IVPB ONE (07:59)
[2019-11-24] MEDS ORDERED: *HR* Promethazine 25 MG/ML VIAL IVP PRN (07:59)
[2019-11-24] MEDS ORDERED: Famotidine 20 MG/2 ML VIAL IVP ONE (07:59)
[2019-11-24] MEDS ORDERED: *HR* HYDROmorphone 2 MG TABLET PO PRN (07:59)
[2019-11-24] MEDS ORDERED: *HR* OxyCODONE Immed Rel 5 MG TABLET PO PRN (07:59)
[2019-11-24] MEDS ORDERED: *HR* Midazolam HCl 2 MG/2 ML VIAL ONE (08:22)
[2019-11-24] MEDS ORDERED: *HR* FentaNYL (PF) 100 MCG/2 ML VIAL ONE ×3 (08:22→09:13)
[2019-11-24] MEDS ORDERED: Ropivacaine/PF 0.5% 30 ML VIAL ONE ×2 (08:23→08:32)
[2019-11-24] MEDS ORDERED: Vancomycin 1,000 MG VIAL ONE (08:43)
[2019-11-24] MEDS ORDERED: Ethanol\\Acetic Acid\\Na Ace\\Ben 1,000 ML IRRIG.SOLN IR ONE (08:43)
[2019-11-24] MEDS ORDERED: Aspirin Enteric Coated 81 MG Tablet PO SCH (09:00)
[2019-11-24] MEDS ORDERED: *HR* PHENYLEPHRINE 1,000 MCG/10 ML SYRINGE IVP ONE (09:20)
[2019-11-24] MEDS: *HR* HYDROmorphone (PF) 1 MG/ML SYRINGE IVP PRN ×4 (10:01→10:31)
[2019-11-24 10:27] LABS: Hematocrit 38.2 % (37.5-50.1); Hemoglobin 12.4 g/dL (12.9-16.9)
[2019-11-24] MEDS ORDERED: Dextrose Gel 15 GM/37.5 ML TUBE PO PRN ×2 (11:17)
[2019-11-24] MEDS ORDERED: *HR* OxyCODONE/APAP 5/325 TABLET PO PRN (11:17)
[2019-11-24] MEDS ORDERED: D5% in Water 1,000 ML IVC PRN (11:17)
[2019-11-24] MEDS ORDERED: MOM Conc 10 ML UD.LIQ PO PRN (11:17)
[2019-11-24] MEDS ORDERED: Ondansetron 4 MG/2 ML VIAL IVP PRN (11:17)
[2019-11-24] MEDS ORDERED: *HR* Dextrose 50 % in Water (Vial) 50 ML VIAL IVP PRN (11:17)
[2019-11-24] MEDS ORDERED: Sennosides 8.6 MG TABLET PO PRN (11:17)
[2019-11-24] MEDS ORDERED: Naloxone 0.4 MG/ML INJ IVP PRN (11:17)
[2019-11-24] MEDS: BuPROPion XL (24 HR) 150 MG TABLET PO SCH (12:03)
[2019-11-24] MEDS: *HR* OxyCODONE Immed Rel 5 MG TABLET PO PRN ×3 (12:03→20:38)
[2019-11-24] MEDS: amLODIPine 5 MG TABLET PO SCH (12:03)
[2019-11-24] MEDS: Baclofen 10 MG TABLET PO SCH ×3 (12:04→20:38)
[2019-11-24] MEDS: lisinopriL 20 MG TABLET PO SCH (12:04)
[2019-11-24] MEDS: lamoTRIgine 100 MG TABLET PO SCH ×2 (12:04→20:30)
[2019-11-24] MEDS: Gabapentin 400 MG CAPSULE PO SCH ×4 (12:05→20:28)
[2019-11-24] MEDS: Insulin LISPRO 300 UNITS/3 ML VIAL SQ SCH ×2 (12:19→16:47)
[2019-11-24] MEDS: CeFAZolin 2 GM/120 ML BAG IVPB SCH (16:38)
[2019-11-24] MEDS ORDERED: Acetaminophen IV 1,000 MG/100 ML BAG IVPB PRN (19:24)
[2019-11-24] MEDS ORDERED: Ketorolac 30 MG/ML VIAL IVP PRN (19:25)
[2019-11-24] MEDS ORDERED: Melatonin 3 MG TABLET PO SCH (21:00)
[2019-11-24] MEDS ORDERED: Insulin LISPRO 300 UNITS/3 ML VIAL SQ SCH (21:00)
[2019-11-25] MEDS: *HR* OxyCODONE Immed Rel 5 MG TABLET PO PRN ×3 (00:43→10:32)
[2019-11-25] MEDS: CeFAZolin 2 GM/120 ML BAG IVPB SCH (00:57)
[2019-11-25 01:43] LABS: Hematocrit 37.3 % (37.5-50.1); Hemoglobin 12.3 g/dL (12.9-16.9)
[2019-11-25 02:00] LABS: BUN/Creatinine Ratio 15 (6-26); Blood Urea Nitrogen 17 mg/dL (6-20); Calcium 8.9 mg/dL (8.6-10.3); Carbon Dioxide 26 mEq/L (23-29); Chloride 103 mEq/L (98-107); Glucose 157 mg/dL (70-105); Osmolality,Calculated 285 (280-300); Potassium 4.1 mEq/L (3.5-5.1); Sodium 135 mEq/L (136-145); eGFR For African Americans > 60 (> 60); eGFR For Non-African Americans > 60 (> 60)
[2019-11-25 07:47] VITALS: BP 153/97
[2019-11-25] MEDS: Gabapentin 400 MG CAPSULE PO SCH (08:34)
[2019-11-25] MEDS: lamoTRIgine 100 MG TABLET PO SCH (08:34)
[2019-11-25] MEDS: amLODIPine 5 MG TABLET PO SCH (08:35)
[2019-11-25] MEDS: lisinopriL 20 MG TABLET PO SCH (08:35)
[2019-11-25] MEDS: BuPROPion XL (24 HR) 150 MG TABLET PO SCH (08:35)
[2019-11-25] MEDS: Baclofen 10 MG TABLET PO SCH (08:35)
[2019-11-25] MEDS: Insulin LISPRO 300 UNITS/3 ML VIAL SQ SCH (08:57)
[2019-11-25] MEDS ORDERED: Aspirin Enteric Coated 81 MG Tablet PO SCH (09:00)
== END 2019-11-25 11:28 | disposition home or self-care (01) | DRG 483 ==
LOC: SAMDAY 06:50 → 3NENU 11:22
PROVIDERS: ADMIT Orthopaedic Surgery; ATTEND Orthopaedic Surgery

== ENCOUNTER 2019-11-28 10:46 | Observation (INO) ==
[2019-11-28] MEDS ORDERED: Isovue-370 500 ML BOTTLE IVP ONE (10:59)
[2019-11-28] MEDS ORDERED: Ketorolac 15 MG/ML VIAL IVP ONE (10:59)
[2019-11-28] MEDS ORDERED: 0.9 % Sodium Chloride 1,000 ML IVC ONE ×2 (10:59→14:02)
[2019-11-28 11:52] LABS: Basophils # 0.1 K/mcL (0.0-0.2); Basophils % 0.6 %; Eosinophils # 0.2 K/mcL (0.0-0.6); Eosinophils % 1.9 %; Immature Granulocytes % 0.6 % (0-4); Lymphocytes # 1.4 K/mcL (0.6-4.6); Lymphocytes % 15.7 %; Mean Corpuscular HGB Conc 32.4 g/dL (31.6-35.5); Mean Corpuscular Hemoglobin 30.6 pg (28.0-33.3); Mean Corpuscular Volume 94.3 fL (83.0-100.0); Mean Platelet Volume 9.1 fL (9.4-12.4); Monocytes # 0.6 K/mcL (0.0-1.3); Monocytes % 6.8 %; Neutrophils # 6.7 K/mcL (1.6-8.9); Platelet Count 334 K/mcL (140-400); Red Blood Count 4.77 M/mcL (4.19-5.50); Red Cell Distribution Width 12.6 % (11.5-14.5); Segmented Neutrophils % 74.4 %
[2019-11-28 11:57] LABS: Hemoglobin 14.6 g/dL (12.9-16.9)
[2019-11-28 12:06] LABS: Prothrombin Time 10.8 Seconds (9.4-12.1)
[2019-11-28 12:09] LABS: Activated Partial Thrombo Time 35.4 Seconds (26.0-36.0)
[2019-11-28 12:12] LABS: BUN/Creatinine Ratio 19 (6-26); Blood Urea Nitrogen 17 mg/dL (6-20); Calcium 10.3 mg/dL (8.6-10.3); Carbon Dioxide 28 mEq/L (23-29); Chloride 100 mEq/L (98-107); Glucose 105 mg/dL (70-105); Osmolality,Calculated 286 (280-300); Potassium 4.2 mEq/L (3.5-5.1); Sodium 137 mEq/L (136-145); eGFR For African Americans > 60 (> 60); eGFR For Non-African Americans > 60 (> 60)
[2019-11-28 12:15] LABS: C-Reactive Protein 103 mg/L (Less than 10)
[2019-11-28] MEDS ORDERED: Piperacillin/Tazobactam 3.375 GM in 0.9 % Sodium Chloride Mini Bag 100 ML IVPB ONE (14:02)
[2019-11-28] MEDS ORDERED: Vancomycin 1,500 MG/265 ML IV.SOLN IVPB ONE (14:02)
[2019-11-28] MEDS ORDERED: Naloxone 0.4 MG/ML INJ IVP PRN (14:24)
[2019-11-28] MEDS ORDERED: Ondansetron ODT 4 MG TAB.RAPDIS SL PRN (14:24)
[2019-11-28] MEDS ORDERED: MOM Conc 10 ML UD.LIQ PO PRN (14:24)
[2019-11-28] MEDS ORDERED: Acetaminophen 325 MG TABLET PO PRN (14:24)
[2019-11-28] MEDS ORDERED: Mag Hydrox/Al Hydrox/Simeth 30 ML UDC PO PRN (14:24)
[2019-11-28 15:26] LABS: Adenovirus Not Detected (Not Detect); Bordetella Pertussis Not Detected (Not Detect); Chlamydophila pneumoniae Not Detected (Not Detect); Coronavirus 229E Not Detected (Not Detect); Coronavirus HKU1 Not Detected (Not Detect); Coronavirus NL63 Not Detected (Not Detect); Coronavirus OC43 Not Detected (Not Detect); Human Metapneumovirus Not Detected (Not Detect); Human Rhinovirus/Enterovirus Not Detected (Not Detect); Influenza A Subtype 2009 H1 Not Detected (Not Detect); Influenza B Not Detected (Not Detect); Mycoplasma pneumoniae Not Detected (Not Detect); Parainfluenza Virus 1 Not Detected (Not Detect); Parainfluenza Virus 2 Not Detected (Not Detect); Parainfluenza Virus 3 Not Detected (Not Detect); Parainfluenza Virus 4 Not Detected (Not Detect); Respiratory Syncytial Virus Not Detected (Not Detect); SARS-CoV-2 Not Detected (Not Detect)
[2019-11-28] MEDS: Gabapentin 400 MG CAPSULE PO SCH ×2 (17:04→20:46)
[2019-11-28] MEDS: *HR* OxyCODONE/APAP 10/325 TABLET PO PRN ×2 (17:04→21:04)
[2019-11-28] MEDS: Baclofen 10 MG TABLET PO SCH ×2 (17:04→20:51)
[2019-11-28] MEDS: Ringers Solution, Lactated 1,000 ML IVC SCH (17:05)
[2019-11-28 18:47] LABS: Bilirubin,Urine Negative (Negative); Blood,Urine Negative (Negative); Clarity,Urine Clear (Clear); Color,Urine Colorless (Yellow); Glucose,Urine (UA) Normal (Normal); Ketones,Urine Negative (Negative); Leukocyte Esterase,Urine Negative (Negative); Nitrite,Urine Negative (Negative); PH,Urine 7.5 pH Units (5.0-8.0); Protein,Urine Negative (Neg-Trace); Specific Gravity,Urine 1.022 (1.010-1.025); Urobilinogen,Urine Normal (Normal)
[2019-11-28 18:59] LABS: Amphetamine Screen,Urine Negative ng/mL (Cutoff=1000); Barbiturate Screen,Urine Negative ng/mL (Cutoff=200); Benzodiazepines Screen,Urine Negative ng/mL (Cutoff=200); Cannabinoid Screen,Urine Negative ng/mL (Cutoff = 50); Cocaine Screen,Urine Negative ng/mL (Cutoff= 300); Opiate Screen,Urine Negative ng/mL (Cutoff=300); Phencyclidine Screen,Urine Negative ng/mL (Cutoff=25)
[2019-11-28] MEDS: lamoTRIgine 100 MG TABLET PO SCH (20:46)
[2019-11-28] MEDS: Melatonin 3 MG TABLET PO SCH (20:47)
[2019-11-28] MEDS: Piperacillin/Tazobactam 3.375 GM in 0.9 % Sodium Chloride Mini Bag 100 ML IVPB SCH (20:50)
[2019-11-29] MEDS: Vancomycin 1,500 MG/265 ML IV.SOLN IVPB SCH ×2 (02:38→13:27)
[2019-11-29 02:43] LABS: Mean Corpuscular HGB Conc 32.9 g/dL (31.6-35.5); Mean Corpuscular Hemoglobin 31.6 pg (28.0-33.3); Mean Corpuscular Volume 96.2 fL (83.0-100.0); Mean Platelet Volume 9.5 fL (9.4-12.4); Platelet Count 277 K/mcL (140-400); Red Blood Count 3.64 M/mcL (4.19-5.50); Red Cell Distribution Width 12.6 % (11.5-14.5); White Blood Count 8.1 K/mcL (4.3-11.1)
[2019-11-29 02:44] LABS: Hemoglobin 11.5 g/dL (12.9-16.9)
[2019-11-29] MEDS: *HR* OxyCODONE/APAP 10/325 TABLET PO PRN ×5 (02:47→22:11)
[2019-11-29] MEDS: Ringers Solution, Lactated 1,000 ML IVC SCH (02:47)
[2019-11-29 02:58] LABS: BUN/Creatinine Ratio 13 (6-26); Blood Urea Nitrogen 14 mg/dL (6-20); Calcium 8.4 mg/dL (8.6-10.3); Carbon Dioxide 26 mEq/L (23-29); Chloride 106 mEq/L (98-107); Glucose 130 mg/dL (70-105); Magnesium 2.1 mg/dL (1.6-2.6); Osmolality,Calculated 288 (280-300); Potassium 3.9 mEq/L (3.5-5.1); Sodium 138 mEq/L (136-145); eGFR For African Americans > 60 (> 60); eGFR For Non-African Americans > 60 (> 60)
[2019-11-29] MEDS: Piperacillin/Tazobactam 3.375 GM in 0.9 % Sodium Chloride Mini Bag 100 ML IVPB SCH ×3 (05:56→22:12)
[2019-11-29] MEDS ORDERED: amLODIPine 5 MG TABLET PO SCH (09:00)
[2019-11-29] MEDS: BuPROPion XL (24 HR) 150 MG TABLET PO SCH (09:21)
[2019-11-29] MEDS: lisinopriL 20 MG TABLET PO SCH (09:22)
[2019-11-29] MEDS: lamoTRIgine 100 MG TABLET PO SCH ×2 (09:22→22:11)
[2019-11-29] MEDS: Gabapentin 400 MG CAPSULE PO SCH ×4 (09:22→22:11)
[2019-11-29] MEDS: Baclofen 10 MG TABLET PO SCH ×3 (12:59→22:09)
[2019-11-29] MEDS: amLODIPine 5 MG TABLET PO SCH (16:16)
[2019-11-29] MEDS ORDERED: *HR* Metoprolol 5 MG/5 ML VIAL IVP PRN (19:39)
[2019-11-29] MEDS: Melatonin 3 MG TABLET PO SCH (22:10)
[2019-11-30 02:55] LABS: Hematocrit 37.8 % (37.5-50.1); Mean Corpuscular HGB Conc 31.7 g/dL (31.6-35.5); Mean Corpuscular Hemoglobin 30.2 pg (28.0-33.3); Mean Platelet Volume 9.3 fL (9.4-12.4); Platelet Count 299 K/mcL (140-400); Red Blood Count 3.98 M/mcL (4.19-5.50); Red Cell Distribution Width 12.6 % (11.5-14.5); White Blood Count 7.9 K/mcL (4.3-11.1)
[2019-11-30] MEDS: *HR* OxyCODONE/APAP 10/325 TABLET PO PRN ×2 (02:58→09:06)
[2019-11-30] MEDS ORDERED: Vancomycin 1,750 MG/517.5 ML IV.SOLN IVPB SCH (05:00)
[2019-11-30] MEDS: Piperacillin/Tazobactam 3.375 GM in 0.9 % Sodium Chloride Mini Bag 100 ML IVPB SCH (06:00)
[2019-11-30] MEDS: BuPROPion XL (24 HR) 150 MG TABLET PO SCH (09:05)
[2019-11-30] MEDS: Gabapentin 400 MG CAPSULE PO SCH (09:06)
[2019-11-30] MEDS: Baclofen 10 MG TABLET PO SCH (09:06)
[2019-11-30] MEDS: lisinopriL 20 MG TABLET PO SCH (09:06)
[2019-11-30] MEDS: amLODIPine 5 MG TABLET PO SCH (09:07)
[2019-11-30] MEDS: lamoTRIgine 100 MG TABLET PO SCH (09:07)
[2019-11-30 11:49] VITALS: BP 104/55
== END 2019-11-30 12:50 | disposition home or self-care (01) ==
LOC: 3NENU 10:46 → EMEROOARM 10:46 → SUATTDRO 15:41 → 3NENU 16:22
PROVIDERS: ADMIT Internal Medicine; ATTEND Internal Medicine